=== PATIENT | female | born 1985 | race Caucasian/White ===

== ENCOUNTER 2017-02-12 20:29 | Emergency (ER) | payer OTHER ==
[2017-02-12 21:24] VITALS: BP 106/59
--- NOTE | 2017-02-12 22:36 | UC ---
Lower Extremity/Ankle HPI - HPI Summary HPI Summary: Accidentally kicked foot into [employer] this morning, injuring 5th toe. Has tenderness and bruising isolated to toe only, but pain radiates up into foot and ankle. - History of Current Complaint Chief Complaint: UCTrauma Stated Complaint: TOE INJURY Time Seen by Provider: 02/12/17 22:14 Hx Obtained From: Patient Hx Last Menstrual Period: 02/12/17 ?: No Onset/Duration: Sudden Onset Severity Initially: Severe Severity Currently: Moderate Aggravating Factor(s): Standing, Ambulation Alleviating Factor(s): Rest Able to Bear Weight: Yes - Allergies/Home Medications Allergies/Adverse Reactions: Allergies Allergy/AdvReac Type Severity Reaction Status Date / Time No Known Allergies Allergy Verified 02/12/17 21:14 PMH/Surg Hx/FS Hx/Imm Hx Endocrine History Of: Denies: Diabetes, Thyroid Disease, Hypothyroidism Cardiovascular History Of: Reports: Cardiac Disorders Denies: Hypertension Respiratory History Of: Reports: Asthma Denies: COPD GI/ History Of: Denies: Ulcer Neurological History Of: Reports: Seizures - controlled with medications - Surgical History Surgical History: Yes Surgery Procedure, Year, and Place: ear tubes as a child - Family History Known Family History: Positive: Cardiac Disease - Social History Lives: With Family Alcohol Use: None Substance Use Type: None Smoking Status (MU): Current Every Day Smoker Type: Cigarettes Amount Used/How Often: 4-5 cig/day Household Exposure Type: Cigarettes - Immunization History Most Recent Tetanus Shot: Pt states up to date Review of Systems Constitutional: Negative Skin: Bruising Eyes: Negative ENT: Negative Respiratory: Negative Cardiovascular: Negative Gastrointestinal: Negative Genitourinary: Negative Motor: Negative Neurovascular: Negative Musculoskeletal: Other: - pain in R 5th toe Neurological: Negative Psychological: Negative All Other Systems Reviewed And Are Negative: Yes Physical Exam Triage Information Reviewed: Yes Appearance: Well-Appearing, Well-Nourished Vital Signs: Initial Vital Signs Temp 97.7 F 02/12/17 21:16 Pulse 85 02/12/17 21:16 Resp 16 02/12/17 21:16 BP 106/59 02/12/17 21:16 Pulse Ox 96 02/12/17 21:16 Vital Signs Reviewed: Yes Eye Exam: Normal Eyes: Positive: Conjunctiva Clear ENT Exam: Normal ENT: Positive: Normal ENT inspection, Hearing grossly normal, Pharynx normal, TMs normal Dental Exam: Other - edentulous on top Dental: Positive: Gross Decay/Caries @ - diffuse Neck exam: Normal Respiratory Exam: Normal Respiratory: Positive: Chest non-tender, Lungs clear, Normal breath sounds, No respiratory distress, No accessory muscle use Cardiovascular Exam: Normal Cardiovascular: Positive: RRR, No Murmur Musculoskeletal Exam: Other - tenderness bruising on R 5th toe only, no bony tenderness in foot. Neurological Exam: Normal Psychological Exam: Normal Skin Exam: Other Lower Extremity Course/Dx - Course Course Of Treatment: Discussed fact that x-rays will not waste/materials exchange specialist, offered x-ray and pt declined. She understands that if anything changes about her condition, or if she changes her mind, she can come back for re-evaluation. - Differential Dx/Diagnosis Provider Diagnoses: R 5th toe fracture, clinical diagnosis Discharge - Discharge Plan Condition: Stable Disposition: HOME Patient Education Materials: Toe Fracture (ED) Referrals: Ant BEE,Raoul Trotter [Primary Care Provider] - Additional Instructions: Use the crutches as long as you need to. I expect your pain to start to improve after a few days. If you have new or worsening symptoms, please feel free to return here.
== END 2017-02-12 22:45 | disposition home or self-care (01) ==
LOC: UCEAST 20:29
DX: S92.911A Unspecified fracture of right toe(s), initial encounter for closed fracture (principal); J45.909 Unspecified asthma, uncomplicated; R56.9 Unspecified convulsions; F17.210 Nicotine dependence, cigarettes, uncomplicated; W22.03XA Walked into furniture, initial encounter
CPT/HCPCS: 99212; G0463

== ENCOUNTER 2017-04-05 15:10 | Emergency (ER) | payer OTHER ==
--- NOTE | 2017-04-05 17:21 | RAD ---
Indication: Left ankle injury with swelling. 3 views of left ankle demonstrate no fracture or dislocation. Ankle mortise is intact. No soft tissue swelling is noted. No other bone or joint abnormality is noted. IMPRESSION: No fracture of the left ankle is noted.
[2017-04-05 18:10] VITALS: BP 113/67
--- NOTE | 2017-04-07 11:54 | ED ---
Lower Extremity - HPI Summary HPI Summary: Pt here w/ Lt ankle injury yesterday. Rolled it when stepping on uneven ground. This continued to happen w/ ambulation so mom gave her a spandex brace to wear. She reports icing but still has swelling and pain worse w/ movement and weight bearing. Reports she's sprained this ankle 17 times. Denies numbness, tingling, weakness. - History of Current Complaint Chief Complaint: EDExtremityLower Stated Complaint: LT ANKLE PAIN Time Seen by Provider: 04/05/17 15:40 Hx Obtained From: Patient Hx Last Menstrual Period: 02/12/17 Pain Intensity: 1 Pain Scale Used: 0-10 Numeric - Allergies/Home Medications Allergies/Adverse Reactions: Allergies Allergy/AdvReac Type Severity Reaction Status Date / Time No Known Allergies Allergy Verified 04/05/17 17:44 PMH/Surg Hx/FS Hx/Imm Hx Previously Healthy: Yes Endocrine/Hematology History: Denies: Hx Anticoagulant Therapy, Hx Diabetes, Hx Thyroid Disease Cardiovascular History: Denies: Hx Hypertension Respiratory History: Reports: Hx Asthma Denies: Hx Chronic Obstructive Pulmonary Disease (COPD) GI History: Denies: Hx Ulcer Neurological History: Reports: Hx Seizures - controlled with medications Psychiatric History: Denies: Hx Eating Disorder, Hx of Violent Episodes Against Others - Cancer History Cancer Type, Location and Year: cervical cancer 12/24 - Surgical History Surgery Procedure, Year, and Place: ear tubes as a child Infectious Disease History: No Infectious Disease History: Denies: Hx Clostridium Difficile, Hx Hepatitis, Hx Human Immunodeficiency Virus (HIV), Hx of Known/Suspected MRSA, History Other Infectious Disease, Traveled Outside the [place] in Last 30 Days - Family History Known Family History: Positive: Cardiac Disease - Social History Alcohol Use: None Hx Substance Use: No Substance Use Type: Reports: None Smoking Status (MU): Never Smoked Tobacco Type: Cigarettes Amount Used/How Often: 4-5 cig/day Review of Systems Constitutional: Negative Musculoskeletal: Other - see HPI Skin: Negative Neurological: Negative All Other Systems Reviewed And Are Negative: Yes Physical Exam Triage Information Reviewed: Yes Vital Signs On Initial Exam: Initial Vitals Temp Pulse Resp BP Pulse Ox 98.3 F 71 18 112/64 99 04/05/17 15:32 04/05/17 15:32 04/05/17 15:32 04/05/17 15:32 04/05/17 15:32 Vital Signs Reviewed: Yes Appearance: Positive: Well-Appearing, No Pain Distress - seated in chair, Well- Nourished Skin: Positive: Warm, Dry - no erythema, no ecchymosis ENT: Positive: Hearing grossly normal Musculoskeletal: Positive: Strength/ROM Intact - knee and toes; can move ankle but is painful -no pretty laxity but exam is limited d/t pt's pain and w/ hx, do not want to inflict worsening of injury, Limited @ - Lt ankle w/ limited ROM d/ t pain; mild edema along lateral malleolus which is TTP, 5th MT is NTTP - moving toes but triggers pain; no gross deformity Neurological: Positive: Normal, Sensory/Motor Intact Psychiatric: Positive: Normal Diagnostics - Vital Signs Vital Signs Temp Pulse Resp BP Pulse Ox 04/05/17 18:09 97.8 F 66 16 113/67 04/05/17 16:43 98.3 F 71 18 112/64 99 04/05/17 15:32 98.3 F 71 18 112/64 99 - Laboratory Lab Statement: Any lab studies that have been ordered have been reviewed, and results considered in the medical decision making process. Lower Extremity Course/Dx - Course Course Of Treatment: No fx, no dislocation. Ankle and foot do not appear to be in danger of impairment of circulation or nerve innervation. RICE and non- weight bearing until seen by ortho to asses for ligament/tendon tear d/t repeated injuries and pt reported instability. Reviewed danger s/sx of when to return to ED. - Diagnoses Provider Diagnoses: Left ankle sprain Discharge - Discharge Plan Condition: Stable Disposition: HOME Patient Education Materials: Ankle Sprain (ED), Crutch Instructions (ED) Referrals: Erick Owen MD [Medical Doctor] - Additional Instructions: Rest, ice, elevate Take ibuprofen 600mg every 6 hours alternating with acetaminophen 650mg every 6 hours as needed for swelling and pain Use crutches to remain non-weight bearing Due to repeated ankle sprains here, it is advised that you follow-up with orthopedics. Call tomorrow to schedule an appointment.
== END 2017-04-05 18:13 | disposition home or self-care (01) ==
LOC: ED 15:10
DX: S93.402A Sprain of unspecified ligament of left ankle, initial encounter (principal); M25.572 Pain in left ankle and joints of left foot; X50.9XXA Other and unspecified overexertion or strenuous movements or postures, initial encounter; Y93.9 Activity, unspecified; Y92.9 Unspecified place or not applicable; Y99.9 Unspecified external cause status
CPT/HCPCS: 99282

== ENCOUNTER 2018-03-25 22:14 | Emergency (ER) | payer OTHER ==
[2018-03-25 22:22] VITALS: BP 140/86
--- NOTE | 2018-03-25 22:56 | ED ---
Laceration/Wound HPI - HPI Summary HPI Summary: 33-year-old female presents with laceration to right middle finger today. She states she was working with a fan when her finger got caught in it. States he tore a little bit of her skin. No active bleeding. she has been putting pressure on the area. Her tetanus is up-to-date. No other injury. Has full range motion her finger. No numbness or tingling. Hasn't taking anything for pain. Is requesting sutures. - History of Current Complaint Stated Complaint: RT FINGER INJURY Time Seen by Provider: 03/25/18 22:25 Hx Last Menstrual Period: 02/12/17 Pain Intensity: 10 - Allergy/Home Medications Allergies/Adverse Reactions: Allergies Allergy/AdvReac Type Severity Reaction Status Date / Time No Known Allergies Allergy Verified 04/05/17 17:44 PMH/Surg Hx/FS Hx/Imm Hx Endocrine/Hematology History: Denies: Hx Anticoagulant Therapy, Hx Diabetes, Hx Thyroid Disease Cardiovascular History: Denies: Hx Hypertension Respiratory History: Reports: Hx Asthma Denies: Hx Chronic Obstructive Pulmonary Disease (COPD) GI History: Denies: Hx Ulcer Musculoskeletal History: Denies: Hx Osteoporosis Neurological History: Reports: Hx Seizures - controlled with medications Psychiatric History: Denies: Hx Eating Disorder, Hx of Violent Episodes Against Others - Cancer History Cancer Type, Location and Year: cervical cancer 12/24 - Surgical History Surgery Procedure, Year, and Place: ear tubes as a child Infectious Disease History: No Infectious Disease History: Denies: Hx Clostridium Difficile, Hx Hepatitis, Hx Human Immunodeficiency Virus (HIV), Hx of Known/Suspected MRSA, History Other Infectious Disease, Traveled Outside the [place] in Last 30 Days - Family History Known Family History: Positive: Cardiac Disease - Social History Alcohol Use: None Hx Substance Use: No Substance Use Type: Reports: None Smoking Status (MU): Light Every Day Tobacco Smoker Type: Cigarettes Amount Used/How Often: 4-5 cig/day Review of Systems Negative: Fever Negative: Chest Pain Negative: Shortness Of Breath Positive: Other - right middle finger laceration All Other Systems Reviewed And Are Negative: Yes Physical Exam Triage Information Reviewed: Yes Vital Signs On Initial Exam: Initial Vitals Temp Pulse Resp BP Pulse Ox 98 F 81 20 140/86 97 03/25/18 22:19 03/25/18 22:19 03/25/18 22:19 03/25/18 22:19 03/25/18 22:19 Vital Signs Reviewed: Yes Appearance: Positive: Well-Appearing Skin: Positive: Warm, Dry, Other - 1/2cm superficial laceration to right middle finger on palmar aspect of distal phalanx Head/Face: Positive: Normal Head/Face Inspection Eyes: Positive: Normal, Conjunctiva Clear Respiratory/Lung Sounds: Positive: Clear to Auscultation, Breath Sounds Present Cardiovascular: Positive: Normal, RRR Musculoskeletal: Positive: Strength/ROM Intact - Right middle finger, Other - Good pulses, cap refill less than 2 seconds, sensation grossly intact Neurological: Positive: Normal Psychiatric: Positive: Normal Procedures - Laceration/Wound Repair 1 Location: Other - right middle finger Description: Linear Anesthesia: Local, 1.0% Length, Depth and Shape: 1/2 centimeter superficial Irrigated w/ Saline (ccs): 20 Closure: Single Layer Suture Type: Prolene - 4-0 Number of Sutures: 1 Sterile Dressing Applied?: No Diagnostics - Vital Signs Vital Signs Temp Pulse Resp BP Pulse Ox 03/25/18 22:19 98 F 81 20 140/86 97 - Laboratory Lab Statement: Any lab studies that have been ordered have been reviewed, and results considered in the medical decision making process. Laceration Repair Course/Dx - Course Course Of Treatment: 33-year-old female presents with laceration to right middle finger today. She states she was working with a fan when her finger got caught in it. States he tore a little bit of her skin. No active bleeding. she has been putting pressure on the area. Her tetanus is up-to-date. No other injury. Has full range motion her finger. No numbness or tingling. Hasn 't taking anything for pain. Is requesting sutures. On exam has half centimeter superficial laceration to distal phalanx right middle finger volar and palmar aspect. Neurovascular intact. clean area and place 1 suture as requested by patient. Patient understands agrees plan. - Differential Dx Differental Diagnoses: Abrasion, Avulsion, Laceration - Clinical Impression Provider Diagnoses: Laceration of middle finger Discharge - Sign-Out/Discharge Documenting (check all that apply): Discharge/Admit/Transfer - Discharge Plan Condition: Good Disposition: HOME Patient Education Materials: Care For Your Stitches (ED) Referrals: Kinjal Sharpe MD [Primary Care Provider] - Additional Instructions: Take Tylenol or ibuprofen for pain Keep area clean and dry for 24 hours Return to ED or primary in 10-14 days to have sutures removed Return to ED if develop signs of infection such as fever, spreading redness, or pus. - Billing Disposition and Condition Condition: GOOD Disposition: Home
== END 2018-03-25 23:04 | disposition home or self-care (01) ==
LOC: ED 22:14
DX: S61.212A Laceration without foreign body of right middle finger without damage to nail, initial encounter (principal); W26.9XXA Contact with unspecified sharp object(s), initial encounter; Y92.9 Unspecified place or not applicable
CPT/HCPCS: 12001; 99281

== ENCOUNTER 2018-05-20 09:36 | Emergency (ER) | payer OTHER ==
[2018-05-20 09:55] VITALS: BP 123/65
--- NOTE | 2018-05-20 09:59 | UC ---
Upper Extremity HPI - HPI Summary HPI Summary: This is [facility]aley [facility] documenting for attending Krish Posada MD. Pt is a 33 y/o F c/o RUE pain onset ~3 weeks ago. She reports a small lump located in the R proximal upper arm onset ~8 months ago that has increased in size and developed an associated pain causing visit to urgent care. Pain is rated a 7/10 and described as an ache, per comp. assessment. Assoc. Sx: RUE pain. Denies: decreased ROM, neck pain. Aggravating factors: flexion of the R bicep. - History of Current Complaint Stated Complaint: R ARM COMPLAINT Time Seen by Provider: 05/20/18 09:46 Hx Obtained From: Patient Hx Last Menstrual Period: 02/12/17 Onset/Duration: Gradual Onset - small lump- large, Lasting Weeks - pain - a few weeks, Still Present, Worse Since - a few weeks ago Pain Scale Used: 0-10 Numeric Location Of Pain: Is Diffuse - RUE Aggravating Factor(s): Flexion - Allergies/Home Medications Allergies/Adverse Reactions: Allergies Allergy/AdvReac Type Severity Reaction Status Date / Time No Known Allergies Allergy Verified 05/20/18 09:55 PMH/Surg Hx/FS Hx/Imm Hx Other Endocrine History: NEG: DM Other Cardiovascular History: NEG: CAD, HTN. Other History Of: Negative For: Anticoagulant Therapy - Surgical History Surgical History: Yes Surgery Procedure, Year, and Place: ear tubes as a child - Family History Known Family History: Positive: Cardiac Disease - Social History Occupation: Unemployed Lives: With Family Alcohol Use: None Substance Use Type: None Smoking Status (MU): Light Every Day Tobacco Smoker Type: Cigarettes Amount Used/How Often: 4-5 cig/day Household Exposure Type: Cigarettes - Immunization History Most Recent Tetanus Shot: Pt states up to date Review of Systems Constitutional: Other Skin: Other - POS: RUE swelling, pain Musculoskeletal: Other: - NEG: neck pain, decreased ROM. All Other Systems Reviewed And Are Negative: Yes Physical Exam - Summary Physical Exam Summary: General: Tearful, no pain distress Skin: warm, color reflects adequate perfusion, dry. Proximal R upper arm over the anterior aspect there is a 3 cm soft tissue swelling that is TTP, (-) erythema. Head: normal Eyes: EOMI, SULMA ENT: normal Neck: supple, nontender Respiratory: CTA, breath sounds present Cardiovascular: RRR Abdomen: soft, nontender Bowel: present Musculoskeletal: normal, strength/ROM intact Neurological: sensory/motor intact, A&O x3 Psychological: affect/mood appropriate Triage Information Reviewed: Yes Vital Signs Reviewed: Yes Diagnostics - Radiology Humerus XR Xray Interpretation: No Acute Changes - IMPRESSION: No rediographically apparent acute abnornality. Radiology Interpretation Completed By: Radiologist - Has been reviewed by provider. Upper Extremity Course/Dx - Course Course Of Treatment: THE SWELLING IS SOFT WITHOUT PULSATION. STRENGHT 5/5 BUT, WITH C/O RT BICEP PAIN. CLINICALLY APPEARS TO BE A LIPOMA BUT, I DO NOT EXPECT PAIN WITH A LIPOMA. BICEP STRAIN IS ALSO A POSSIBILITY BUT, DOES NOT EXPLAIN THE SWELLING. F/U PMD AND DERMATLOGY. - Differential Dx/Diagnosis Provider Diagnoses: RIGHT UPPER ARM SOFT TISSUE SWELLING Discharge - Sign-Out/Discharge Documenting (check all that apply): Patient Departure - Discharge Plan Condition: Stable Disposition: HOME Prescriptions: Ibuprofen TAB* [Motrin TAB* 800 MG] 800 mg PO TID PRN #20 tab PRN Reason: Pain Patient Education Materials: Arm Pain (ED), Soft Tissue Mass (ED) Referrals: Urbano Rollins MD [Medical Doctor] - Kinjal Sharpe MD [Primary Care Provider] - Additional Instructions: FOLLOW UP WITH YOUR PRIMARY CARE DOCTOR AND EDITOR CONTINUITY AND SCRIPT. GET RECHECKED FOR ANY WORSENING OF YOUR CONDITION OR QUESTIONS OR CONCERNS. - Billing Disposition and Condition Condition: STABLE Disposition: Home
--- NOTE | 2018-05-20 10:20 | RAD ---
Indication: Right bicep pain and swelling Comparison: None. Technique: Three views of the right humerus were obtained. Report: An external metallic marker is seen overlying the anterolateral mid-level humerus The visualized bones of the right upper arm are well-corticated and properly aligned. There is no acute fracture or dislocation seen. There is no focal bony abnormality. IMPRESSION: No radiographically apparent acute abnormality. If the patient's symptoms persist, follow-up imaging is recommended
== END 2018-05-20 10:46 | disposition home or self-care (01) ==
LOC: UCEAST 09:36
DX: M79.9 Soft tissue disorder, unspecified (principal); Z82.49 Family history of ischemic heart disease and other diseases of the circulatory system; F17.210 Nicotine dependence, cigarettes, uncomplicated
CPT/HCPCS: 99212; G0463

== ENCOUNTER 2018-05-25 12:53 | Emergency (ER) | payer OTHER ==
[2018-05-25 13:05] VITALS: BP 124/69
--- NOTE | 2018-05-25 13:05 | UC ---
Lower Extremity/Ankle HPI - HPI Summary HPI Summary: 33 yo female presents with left ankle pain. She tells me that throughout the course of the day yesterday she inverted her LEFT ankle three different times. She was immediately ambulatory after each time, but since yesterday has had persistent pain. She is currently ambulatory without assistance, but does have a significant limp. She has been taking ibuprofen for pain and RICE therapy with no relief. Also tells me that she has sprained this ankle many times in the past. Denies numbness or tingling. - History of Current Complaint Stated Complaint: L ANKLE INJURY Time Seen by Provider: 05/25/18 13:04 Hx Obtained From: Patient Hx Last Menstrual Period: 02/12/17 Onset/Duration: Sudden Onset Severity Initially: Severe Severity Currently: Severe Pain Intensity: 10 Pain Scale Used: 0-10 Numeric Aggravating Factor(s): Standing, Ambulation Alleviating Factor(s): Rest Able to Bear Weight: Yes - Allergies/Home Medications Allergies/Adverse Reactions: Allergies Allergy/AdvReac Type Severity Reaction Status Date / Time No Known Allergies Allergy Verified 05/25/18 12:59 PMH/Surg Hx/FS Hx/Imm Hx Previously Healthy: Yes Other History Of: Negative For: Anticoagulant Therapy - Surgical History Surgical History: Yes Surgery Procedure, Year, and Place: ear tubes as a child - Family History Known Family History: Positive: Cardiac Disease - Social History Occupation: Employed Full-time Lives: With Family Alcohol Use: None Substance Use Type: None Smoking Status (MU): Light Every Day Tobacco Smoker Type: Cigarettes Amount Used/How Often: 4-5 cig/day Household Exposure Type: Cigarettes - Immunization History Most Recent Tetanus Shot: Pt states up to date Review of Systems Constitutional: Negative Skin: Negative Respiratory: Negative Cardiovascular: Negative Neurovascular: Negative Musculoskeletal: Other: - Left ankle pain Neurological: Negative Psychological: Negative All Other Systems Reviewed And Are Negative: Yes Physical Exam - Summary Physical Exam Summary: GENERAL: NAD. WDWN. No pain distress. SKIN: No rashes, sores, lesions, or open wounds. NECK: Supple. Nontender. No lymphadenopathy. CHEST: No accessory muscle use. Breathing comfortably and in no distress. CV: Pulses intact PT and DP. Brisk cap refill. MSK: LEFT ANKLE: Moderate TTP about lateral malleolus and over ATFL. Mild pain at high ankle. FROM with moderate pain. Strength 5/5. No edema or obvious bony deformities. Negative talar tilt. No increased laxity. NEURO: Alert. Sensations intact and symmetric B/L LEs PSYCH: Age appropriate behavior. Triage Information Reviewed: Yes Vital Signs: Vital Signs: Temp Pulse Resp BP Pulse Ox 98.3 F 85 16 124/69 99 05/25/18 13:00 05/25/18 13:00 05/25/18 13:00 05/25/18 13:00 05/25/18 13:00 Vital Signs Reviewed: Yes Lower Extremity Course/Dx - Course Course Of Treatment: XR: IMPRESSION: NO EVIDENCE FOR FRACTURE. Suspect ankle sprain. Pt was provided crutches, hannah wrap, and gel splint. Advised to RICE and continue with ibuprofen. F/u with Ortho. - Differential Dx/Diagnosis Provider Diagnoses: Left ankle sprain Discharge - Sign-Out/Discharge Documenting (check all that apply): Patient Departure - Discharge Plan Condition: Stable Disposition: HOME Patient Education Materials: Ankle Sprain (DC) Referrals: Kinjal Sharpe MD [Primary Care Provider] - James Del Valle MD [Medical Doctor] - As Soon As Possible Additional Instructions: If you develop a fever, shortness of breath, chest pain, new or worsening symptoms - please call your PCP or go to the ED. 1) Rest, Ice, and elevate your ankle as much as possible 2) Please call Orthopedics at the number below to schedule a follow up appointment - Billing Disposition and Condition Condition: STABLE Disposition: Home
--- NOTE | 2018-05-25 13:46 | RAD ---
INDICATION: Left ankle injury. TECHNIQUE: 3 views of the left ankle were obtained. FINDINGS: The bones are in normal alignment. No fracture is seen. Joint spaces appear maintained. IMPRESSION: NO EVIDENCE FOR FRACTURE.
== END 2018-05-25 14:44 | disposition home or self-care (01) ==
LOC: UCEAST 12:53
DX: S93.402A Sprain of unspecified ligament of left ankle, initial encounter (principal); X50.1XXA Overexertion from prolonged static or awkward postures, initial encounter; Y93.9 Activity, unspecified; Y92.9 Unspecified place or not applicable; F17.210 Nicotine dependence, cigarettes, uncomplicated
CPT/HCPCS: 99212; G0463

== ENCOUNTER 2018-05-26 15:03 | Emergency (ER) | payer OTHER ==
[2018-05-26] MEDS ORDERED: Ketorolac INJ* 60 MG/2 ML VIAL IM ONE (15:26)
--- NOTE | 2018-05-26 15:38 | ED ---
Lower Extremity - HPI Summary HPI Summary: This is scribe Frederic Lewis documenting for attending Balta Kang MD. A 33 y/o female EHSAN presents to ED c/o left foot pain reaching 5/10 in severity. As per triage, "rolled left ankle 3 times yesterday and went to [facility] to have xrays, dx with crutches and soft brace. Now pain so bad she's nauseated". According to the patient, she got up yesterday and accidentally rolled her left foot. She noted that an XR of her foot was done at [facility] yesterday where the staff weren't 100% sure of a fracture because it was so swollen and they could not tell if it was broken. As per MD, X-ray of left foot completed on 2017 at [facility] revealed no evidence of fracture dislocation. I, Dr. Kang personally performed the services described in this documentation as scribed in my presence and it is both accurate and complete. - History of Current Complaint Chief Complaint: EDExtremityLower Stated Complaint: SWELLING Time Seen by Provider: 05/26/18 15:08 Hx Obtained From: Patient Hx Last Menstrual Period: 02/12/17 Mechanism Of Injury: Twisted - Rolled Onset of Pain: Immediate Onset/Duration: Hours Severity Initially: Moderate Severity Currently: Moderate Pain Intensity: 5 Pain Scale Used: 0-10 Numeric Timing: Constant Location: Is Diffuse - Left foot/ankle Associated Signs And Symptoms: Positive: Negative Aggravating Factor(s): Nothing Alleviating Factor(s): Nothing - Allergies/Home Medications Allergies/Adverse Reactions: Allergies Allergy/AdvReac Type Severity Reaction Status Date / Time No Known Allergies Allergy Verified 05/26/18 15:12 PMH/Surg Hx/FS Hx/Imm Hx Endocrine/Hematology History: Denies: Hx Anticoagulant Therapy, Hx Diabetes, Hx Thyroid Disease Cardiovascular History: Denies: Hx Hypertension Respiratory History: Reports: Hx Asthma Denies: Hx Chronic Obstructive Pulmonary Disease (COPD) GI History: Denies: Hx Ulcer Musculoskeletal History: Denies: Hx Osteoporosis Neurological History: Reports: Hx Seizures - controlled with medications Psychiatric History: Denies: Hx Eating Disorder, Hx of Violent Episodes Against Others - Cancer History Cancer Type, Location and Year: cervical cancer 12/24 - Surgical History Surgery Procedure, Year, and Place: ear tubes as a child Infectious Disease History: No Infectious Disease History: Denies: Hx Clostridium Difficile, Hx Hepatitis, Hx Human Immunodeficiency Virus (HIV), Hx of Known/Suspected MRSA, History Other Infectious Disease, Traveled Outside the [place] in Last 30 Days - Family History Known Family History: Positive: Cardiac Disease - Social History Alcohol Use: None Hx Substance Use: No Substance Use Type: Reports: None Smoking Status (MU): Light Every Day Tobacco Smoker Type: Cigarettes Amount Used/How Often: 4-5 cig/day Review of Systems Negative: Fever Positive: Other - POSITIVE: Left foot/ankle pain. All Other Systems Reviewed And Are Negative: Yes Physical Exam - Summary Physical Exam Summary: VITAL SIGNS: Reviewed. GENERAL: Patient is a well-developed and nourished female who is lying comfortable in the stretcher. Patient is not in any acute respiratory distress. HEAD AND FACE: No signs of trauma. No ecchymosis, hematomas or skull depressions. No sinus tenderness. EYES: PERRLA, EOMI x 2, No injected conjunctiva, no nystagmus. EARS: Hearing grossly intact. Ear canals and tympanic membranes are within normal limits. MOUTH: Oropharynx within normal limits. NECK: Supple, trachea is midline, no adenopathy, no JVD, no carotid bruit, no c- spine tenderness, neck with full ROM. CHEST: Symmetric, no tenderness at palpation LUNGS: Clear to auscultation bilaterally. No wheezing or crackles. CVS: Regular rate and rhythm, S1 and S2 present, no murmurs or gallops appreciated. ABDOMEN: Soft, non-tender. No signs of distention. No rebound no guarding, and no masses palpated. Bowel sounds are normal. EXTREMITIES: Left foot ankle has good pulse, good capillary refill, no ecchymosis, no deformity, no swelling, ROM secondary to pain. NEURO: Alert and oriented x 3. No acute neurological deficits. Speech is normal and follows commands. SKIN: Dry and warm X-ray of Left Foot completed on 05/25/2018 at [facility] revealed no evidence of fracture dislocation. Triage Information Reviewed: Yes Vital Signs On Initial Exam: Initial Vitals Temp Pulse Resp BP Pulse Ox 98.7 F 104 14 116/71 98 05/26/18 15:08 05/26/18 15:08 05/26/18 15:08 05/26/18 15:08 05/26/18 15:08 Vital Signs Reviewed: Yes Diagnostics - Vital Signs Vital Signs Temp Pulse Resp BP Pulse Ox 05/26/18 15:08 98.7 F 104 14 116/71 98 - Laboratory Lab Statement: Any lab studies that have been ordered have been reviewed, and results considered in the medical decision making process. - Radiology FOOT XR Radiology Interpretation Completed By: Radiologist - NO EVIDENCE FOR FRACTURE. IF THE PATIENT'S SYMPTOMS PERSIST RECOMMEND FOLLOW-UP IMAGING. ED PHYSICIAN REVIEWED THIS RADIOLOGY REPORT. Lower Extremity Course/Dx - Course Assessment/Plan: This patient is a 33-year-old female who presents to the emergency room with a chief complaint of left ankle pain. Patient was seen yesterday in urgent care where an x-ray was performed of the left ankle and knee and shows no evidence for fracture. X-ray of the left foot impression: Negative for acute fracture dislocation. In the ED course the patient was given 1 dose of Toradol IM. I discussed all the findings and test results with the patient. Patient was instructed to return to the emergency room immediately if any of the symptoms return or worsens. Plan of care was discussed with the patient who understands and agrees. All questions were answered to patient satisfaction. There were no further complaints or concerns. Lung exam before discharge: CTA B/L. Good air exchange. No wheezing or crackles heard. CVS: S1 and S2 present. No murmurs appreciated. Patient is alert and oriented x 3. Patient is hemodynamically stable. Patient will be discharged home with follow up PCP in the next 2-3 days - Diagnoses Differential Diagnosis/HQI/PQRI: Positive: Bursitis, Fracture (Closed), Sprain, Strain Provider Diagnoses: Left ankle strain Discharge - Sign-Out/Discharge Documenting (check all that apply): Patient Departure - DISCHARGE - Discharge Plan Condition: Stable Disposition: HOME Patient Education Materials: Ankle Strain (ED) Referrals: Kinjal Sharpe MD [Primary Care Provider] - 3 Days Additional Instructions: FOLLOW UP WITH PRIMARY CARE IN 3 DAYS. RETURN TO ED FOR ANY WORSENING OR NEW SYMPTOMS. Attestations Scribe Attestation: This is scrtito Lewis documenting for attending Balta Kang MD. User Type: Provider with Scribe Provider Attestation: The documentation recorded by the scribe accurately reflects the service I personally performed and the decisions made by me.
--- NOTE | 2018-05-26 16:08 | RAD ---
INDICATION: Left foot injury. TECHNIQUE: 3 views of the left foot were obtained. FINDINGS: There is lateral soft tissue swelling. The bones are in normal alignment. No fracture is seen. Joint spaces appear maintained. IMPRESSION: NO EVIDENCE FOR FRACTURE. IF THE PATIENT'S SYMPTOMS PERSIST RECOMMEND FOLLOW-UP IMAGING.
[2018-05-26 16:41] VITALS: BP 123/69
== END 2018-05-26 16:40 | disposition home or self-care (01) ==
LOC: ED 15:03
DX: S96.912A Strain of unspecified muscle and tendon at ankle and foot level, left foot, initial encounter (principal); X50.0XXA Overexertion from strenuous movement or load, initial encounter; Y92.9 Unspecified place or not applicable; F17.210 Nicotine dependence, cigarettes, uncomplicated; R56.9 Unspecified convulsions; Z79.899 Other long term (current) drug therapy
CPT/HCPCS: 96372; 99282; J1885

== ENCOUNTER 2018-07-29 05:57 | Day surgery (SDC) | payer OTHER ==
[~2018-07-29 05:57] MED LIST: Buffered Lidocaine 0.9% SYRIN* 5 ML/SYR SYRINGE INTRADERM ONE
[2018-07-29] MEDS ORDERED: Buffered Lidocaine 0.9% SYRIN* 5 ML/SYR SYRINGE INTRADERM ONE (06:00)
[2018-07-29] MEDS ORDERED: Buffered Lidocaine 0.9% SYRIN* 5 ML/SYR SYRINGE ONE (06:15)
[2018-07-29] MEDS ORDERED: ceFAZolin 2 GM PREMIX in ORs 2 GM/50 ML BAG IVPB ONE (06:15)
[2018-07-29] MEDS ORDERED: Bupivacaine 0.5% SDV PF* 30ML VIAL ONE (06:42)
[2018-07-29] MEDS ORDERED: Lidocain 1% EPI 1:100,000 * 30 ML MDV ONE (06:42)
[2018-07-29] MEDS ORDERED: Albuterol 2.5 MG/3 ML NEB.SOL* (0.083%) INH ONE ×2 (07:01→07:07)
[2018-07-29] MEDS ORDERED: Propofol* 10 MG/ML 20 ML BTL IV PUSH ONE ×2 (07:19→07:49)
[2018-07-29] MEDS ORDERED: Lidocaine 2% PF * 5 ML VIAL ONE (07:19)
[2018-07-29] MEDS ORDERED: Midazolam* 1 MG/ML 2 ML VIAL (2 MG) ONE ×2 (07:26→07:47)
[2018-07-29] MEDS ORDERED: Acetaminophen IV 1GM/100ML * 1,000 MG/100 ML VIAL IVPB ONE (07:59)
[2018-07-29] MEDS ORDERED: Ondansetron INJ* 2 MG/ML VIAL IV PRN (07:59)
[2018-07-29] MEDS ORDERED: fentaNYL* 50 MCG/ML 2 ML VIAL (100 MCG VIAL) IV PRN (07:59)
[2018-07-29] MEDS ORDERED: Naloxone* 0.4 MG/ML 1 ML VIAL IV PRN (07:59)
[2018-07-29] MEDS ORDERED: Ketorolac INJ* 30 MG/ML 1 ML VIAL ONE (08:01)
[2018-07-29] MEDS ORDERED: Acetaminophen IV 1GM/100ML * 100 ML ONE (08:14)
--- NOTE | 2018-07-29 08:18 | BRIEFOPN ---
Brief Operative Note - Surgery Procedures: Procedures OPERATIVE REPORT PRE-OP: Lipoma right arm POST-OP:Same PROCEDURE:Excision of 6 cm right arm SURGEON: MD Vianca ANESTHESIA:Local with MAC Dr. Goins ASST: none IVF:min EBL:min SPECIMEN:Lipoma right arm DRAIN: none WOUND CLASS: One COMPLICATIONS: none TO PACU
[2018-07-29 08:54] VITALS: BP 115/66
--- NOTE | 2018-07-30 04:47 | OP ---
DATE OF OPERATION: 07/29/18 - [facility] DATE OF : 81 SURGEON: Erlin Coley MD BILINGUAL BRANCH MANAGER: None. ANESTHESIOLOGIST: Dr. Goins. ANESTHESIA: Local with monitored anesthesia care. PRE-OP DIAGNOSIS: Lipoma, right upper arm. POST-OP DIAGNOSIS: A 5 cm lipoma, right upper arm. OPERATIVE PROCEDURE: Excision of subcutaneous lipoma, 5 cm, right upper arm. ESTIMATED BLOOD LOSS: Minimal. IV FLUIDS: Minimal. SPECIMENS: Right arm lipoma. COMPLICATIONS: None. DRAINS: None. DESCRIPTION OF PROCEDURE: Written informed consent was obtained. The right arm was marked with indelible ink and preoperative antibiotics were administered. The patient was taken to the operating room and placed in the supine position. Intravenous sedation was administered and the right arm was prepped and draped in the usual sterile fashion. A time-out verification was completed. 1% lidocaine with epinephrine was infiltrated over the palpable soft fleshy mass in the right medial upper arm and a vertical incision of approximately 5 to 6 cm was made. A 5 cm lipoma easily was excised from the surrounding subcutaneous tissue and sent for specimen. Hemostasis was assured. The lipoma was assured to be completely removed. The wound was then closed with interrupted 3-0 Vicryl subcutaneous suture. The skin was approximated with a subcuticular 4-0 Vicryl suture. Steri-Strips and sterile dressings were applied. The patient tolerated the procedure well, was taken to the recovery room in stable condition. [id number]/[facility] #: [id number] MTDD
== END 2018-07-29 09:15 | disposition home or self-care (01) ==
LOC: OR 05:57
PROVIDERS: ATTEND Surgery
DX: D17.21 Benign lipomatous neoplasm of skin and subcutaneous tissue of right arm (principal); J45.909 Unspecified asthma, uncomplicated; R56.9 Unspecified convulsions; F17.210 Nicotine dependence, cigarettes, uncomplicated
CPT/HCPCS: 81025; 88304; J0690; J1885; J2250; J2704

== ENCOUNTER 2018-10-31 08:13 | Day surgery (SDC) | payer OTHER ==
[~2018-10-31 08:13] MED LIST changes: -Buffered Lidocaine 0.9% SYRIN* 5 ML/SYR SYRINGE INTRADERM ONE; +Buffered Lidocaine 1% SYRIN* 1 ML/SYRINGE INTRADERM ONE; +Dexamethasone IV* 4 MG/ML 1 ML (4 MG) IV SLOW PU ONE; +Famotidine IV* 10 MG/ML 2 ML (20 mg) IV ONE; +Lactated Ringers 1000 ML Bag* 1,000 ML IV SCH
[2018-10-31] MEDS ORDERED: Dexamethasone IV* 4 MG/ML 1 ML (4 MG) ONE (10:39)
[2018-10-31] MEDS ORDERED: ceFOXitin 2 GM IVPREMIX* 2 GM/50 ML BAG ONE (10:39)
[2018-10-31] MEDS ORDERED: Buffered Lidocaine 1% SYRIN* 1 ML/SYRINGE INTRADERM ONE (10:39)
[2018-10-31] MEDS ORDERED: Famotidine IV* 10 MG/ML 2 ML (20 mg) ONE (10:39)
[2018-10-31] MEDS ORDERED: fentaNYL* 50 MCG/ML 2 ML VIAL (100 MCG VIAL) ONE (10:48)
[2018-10-31] MEDS ORDERED: Midazolam* 1 MG/ML 2 ML VIAL (2 MG) ONE (10:48)
[2018-10-31] MEDS ORDERED: Ketorolac INJ* 30 MG/ML 1 ML VIAL ONE (10:49)
[2018-10-31] MEDS ORDERED: Ondansetron INJ* 2 MG/ML VIAL ONE (10:49)
[2018-10-31] MEDS ORDERED: Propofol* 10 MG/ML 20 ML BTL ONE (10:49)
[2018-10-31] MEDS ORDERED: Lidocaine 2% PF * 5 ML VIAL ONE ×2 (10:50→11:38)
[2018-10-31] MEDS ORDERED: Neostigmine Methylsulfate* 1 MG/ML 10 ML VIAL (1 mg/ml) ONE (11:42)
[2018-10-31] MEDS ORDERED: Glycopyrrolate IV* 0.2 MG/ML 1 ML VIAL ONE (11:42)
[2018-10-31] MEDS ORDERED: Naloxone* 0.4 MG/ML 1 ML VIAL IV PRN (12:00)
[2018-10-31] MEDS ORDERED: DiMENhydriNATE IV* 50 MG/ML VIAL IV PUSH PRN (12:00)
[2018-10-31] MEDS ORDERED: fentaNYL* 50 MCG/ML 2 ML VIAL (100 MCG VIAL) IV PRN (12:00)
[2018-10-31] MEDS ORDERED: oxyCODONE/Acetamin 5/325 MG* TAB ONE (12:42)
[2018-10-31 13:59] VITALS: BP 116/78
--- NOTE | 2018-10-31 22:59 | OP ---
DATE OF OPERATION: 10/31/18 [facility] DATE OF : 81 SURGEON: Ignacio Lopez MD INTERNATIONAL MARKETING SPECIALIST: None. PRE-OP DIAGNOSIS: Menorrhagia and desires sterilization. POST-OP DIAGNOSIS: Menorrhagia and desires sterilization. OPERATIVE PROCEDURE: Dilation and endometrial ablation, laparoscopic bilateral tubal ligation. ESTIMATED BLOOD LOSS: Minimal. SPECIMEN: Includes none. FINDINGS: Include a normal cavity on hysteroscopy. On laparoscopy, the anterior bladder flap appeared normal. The uterus, tubes, and ovaries all appeared normal. DESCRIPTION OF PROCEDURE: The patient was identified, procedure identified as a D and C hysteroscopy, endometrial ablation and laparoscopic bilateral tubal ligation. The patient was taken to the operating room, prepped and draped in the usual fashion in the dorsal lithotomy position under general anesthesia. Two single- tooth tenaculums were placed on the anterior lip of the cervix. The cervix was sounded to 7 cm. The endocervix was sounded to 1.5 cm. The cervix was easily dilated up to a #8 Hegar dilator so that cavity length was 5.5. The hysteroscope was inserted. A good uterine cavity, both tubal ostia were visualized, and there was a normal cavity with no polyps or fibroids and no abnormal areas. The NovaSure device was opened. The array was checked. A NovaSure device was placed within the uterine cavity with a cavity length of 5.5. The opening width was 4.0 and end with manipulation was up to 4.7. Power setting of 142. The NovaSure perforation test was performed and device passed. The device was enabled and NovaSure ablation took place for 51 seconds. At the end of the procedure, the hysteroscope was reinserted and a good ablation was noted. No polyps, no perforations or concerns were noted on hysteroscopy. All instruments removed from vagina. A sponge stick was placed for manipulation. A small infraumbilical incision was made and a Veress needle was inserted through this. The abdomen was insufflated to 50 mmHg. The Veress needle was removed and the trocar was inserted under direct visualization using a Visiport. All the above findings were noted. A small incision was made above the pubic symphysis 2 cm above it and a second trocar was inserted under direct visualization. The bipolar Kleppinger cautery was placed through the lower site. The right fallopian tube was grasped in its midportion and fulgurated x3. The same procedure was carried out on the left after following it out to its fimbriated ends. Care was taken to cauterize the fimbria as well. At the end of the procedure, all the instruments removed from the abdomen. The abdomen was deflated of CO2. The skin was closed using skin glue , and the sponge and instrument sticks removed from vagina. [id number]/[facility] #: [id number]
== END 2018-10-31 14:02 | disposition home or self-care (01) ==
LOC: OR 08:13
PROVIDERS: ATTEND Obstetrics & Gynecology
DX: Z30.2 Encounter for sterilization (principal); N92.0 Excessive and frequent menstruation with regular cycle; F17.210 Nicotine dependence, cigarettes, uncomplicated
CPT/HCPCS: 81025; A9270-GY; J0694; J1100; J1885; J2250; J2405; J2704; J2710; J3010

== ENCOUNTER 2018-12-02 10:13 | Emergency (ER) | payer OTHER ==
--- OUTSIDE RECORDS SUMMARY | 2018-12-02 10:19 | XMS REPORT | Continuity of Care Document ---
:1985 External Reference #:[id number] Author Name Ignacio Lopez M.D. Address [address] [place] [address] Care Team Providers Name Role Phone Soo Sharpe MD Primary Care Physician Unavailable Payers Date Identification Numbers Payment Provider Subscriber Policy Number: [id number] [facility] Fer Anderson PayID: [id number] [address] [place] [address] Policy Number: [id number] Medicaid [place] Fer Anderson PayID: [id number] [address] [place] [address] Expires: 2013 Policy Number: [id number] Medicaid [place] Fer Anderson PayID: [id number] [address] [place] [address] Advance Directives Description No Information Available Problems Date Description Provider Status Onset: 11/12/2012 Localization-related epilepsy Charmaine Anthony NP Active Onset: 11/13/2012 Dysplasia of cervix Charmaine Anthony NP Active Note: high-grade Family History Date Family Member(s) Observation Comments Father COPD Father Hypercholesterolemia Father Heart Disease Mother Diabetes Children 3 First Son A&W Second Son A&W First Daughter Autism First Daughter Add (Attention Deficit Disorder) Siblings 5 First Brother A&W First Sister A&W Second Sister A&W Third Sister A&W Fourth Sister A&W Paternal Grandfather due to Lung Cancer () Paternal Grandfather due to Throat Cancer () Paternal Grandmother due to Lung Cancer () Paternal Grandmother due to Pancreatic Cancer () Maternal Grandfather Unknown Maternal Grandmother due to Respiratory Failure () Maternal Aunts Cervical Cancer Social History Type Date Description Comments Sex Unknown Education Highest level completed, 12th grade Marital Status Legal Status: Legally Lives With Sons Lives With Daughter Sleep Typically sleeps 7 hours a night Pets None Occupation Homemaker Environmental Hazards Not exposed to any environmental hazards Environmental Hazards Low Lead Risk Cigarette Use Current Cigarette Smoker ETOH Use Denies alcohol use Recreational Drug Use Denies Drug Use Tobacco Use Start: Unknown Patient is a current smoker, smokes every day Smoking Status Reviewed: 11/27/18 Patient is a current smoker, smokes every day Exercise Type/Frequency Exercises sporadically Seat Belt/Car Seat Always uses seat belt Currently Active Patient is currently sexually active Contraceptive Methods Current methods include tubal ligation STD's 2011 HPV, High Risk AWA: 04/27/2013 Estimated Date of Delivery Based on LMP Allergies, Adverse Reactions, Alerts Description No Known Drug Allergies Medications Medication Date Status Form Strength Qnty SIG Indications Ordering Provider Amoxicillin/Clavu 11/27 Active Tablets 500-125mg 20tab 1 by mouth Ignacio Campbell lanate s twice a Gelber, day M.D. Ibuprofen 10/22 Active Tablets 600mg 90tab take one Z01.818 Ignacio Campbell s tab by Gelber, mouth M.D. every 6 hours as needed pain Alyacen 135 08/22 Active Tablets 1-35mg-mc 84tab 1 by mouth N92.6 Ignacio Campbell /2017 g s every day Torin Lopez Tegretol 11/12 Active Tablets ER 200mg 2 po bid 12HR Ventolin HFA Active Aerosol 108(90Bas 1unit 2 puffs q Unknown / e) s 4 hours mcg/Act prn Tri-Sprintec 07/01 Hx Tablets 0.18/0.21 28tab take one N92.6 Ignacio Campbell 5/0.25 s tablet by Jessica, - mg-35 mcg mouth one M.D. 08/22 time daily Ethynodiol 06/10 Hx Tablets 1-35mg-mc 84tab 1 po qd as Z30.8 Ignacio Campbell Diacetate/Ethinyl /2017 g s directed Gelber, Estradiol - M.D. 07/01 Metrogel-Vaginal 05/11 Hx Gel 0.75% 1TX 1 Ignacio Campbell applicator Gelvalentino, - every M.D. 06/10 night at bedtime x 5 days Levonorgestrel/Et 05/08 Hx Tablets 0.1-20mg- 84tab 1 by mouth Z30.8 Ignacio Campbell hinyl Estradiol mcg s every day Gelvalentino, - M.D. 06/10 Medroxyprogestero 06/29 Hx Suspension 150mg/ml 1unit give one Shiela ne Acetate s dose Im Hira, - every 3 Folic Acid 11/10 Hx Tablets 800mcg 30tab 1 PO daily s Ousmane - CNM 05/08 Plus Dha 11/10 Hx Tablets 7-0.4-100 100ta ok to mg bs substitute Ousmane, - pnv + dha [facility] 05/08 covered by pt insurance 1 daily by mouth Lancets 03/27 Hx Misc 100un for use its with blood Ousmane, - glucose [facility] 06/25 monitor. use as directed qid Blood Glucose 03/13 Hx Kit W/Device 1Moni use in am Phaelon Monitoring System /2012 tor before MD Lorene - eating, 06/25 then 2 hrs /2012 after every meal Blood Glucose 03/13 Hx Strips 1Box to use as Phaelon Test Strips /2012 directed MD Lorene - qid 06/25 Alcohol Pads 03/13 Hx Pads 70% 1Box Use to Phaelon /2012 clean skin MD Lorene - prior to 06/25 fingerstic k Flintstones 11/12 Hx Chewtabs 60mg 90uni 1 po qd Idalia Matthew Burns M.D. 05/10 Tammy 28 Day 07/21 Hx Tablets 0.03mg;3 28tab 1 PO qd Lexx Stallings /Ish mg Matthew Donato M.D. 10/24 Dilantin Hx Capsules 100mg Unknown /0000 - 11/10 Medications Administered in Office Medication Date Status Form Strength Qnty SIG Indications Ordering Provider PT SCRN Tbco Administered Injection Ignacio Campbell Id as Non User 018 Torin Lopez PT SCRN Tbco Administered Injection Ignacio Campbell Id as Non User 018 Torin Lopez PT SCRN Tbco Administered Injection Ignacio Campbell Id as Non User 018 Torin Lopez Immunizations CPT Code Status Date Vaccine Reaction Lot # [id number] Given 10/22/2018 Influenza Vaccine Quadrivalent [id number] Preser/Antibiotic Free Im Use 28484 Given 11/10/2013 Influenza Virus Vaccine Split Virus Pt lavinia well. 1346 5P Use For Individual 3Yr Older 14074 Given 03/13/2013 Diptheria,Tetanus Toxoids And Pt lavinia well. [id number] Acelluar Pertussis Vaccine+Hib Vital Signs Date Vital Result Comment 11/27/2018 9:49am BP Systolic 116 mmHg BP Diastolic 72 mmHg Body Temperature 98.2 F Oral Height 62 inches 5'2" Weight 154.00 lb BMI (Body Mass Index) 28.2 kg/m2 Last Menstrual Period 5957266 3 Parity 3 11/07/2018 8:50am BP Systolic 102 mmHg BP Diastolic 70 mmHg Body Temperature 98.1 F Height 62 inches 5'2" Weight 160.00 lb BMI (Body Mass Index) 29.3 kg/m2 Last Menstrual Period 5844722 3 Parity 3 10/22/2018 9:21am BP Systolic 118 mmHg BP Diastolic 68 mmHg Body Temperature 98.6 F Heart Rate 76 /min Respiratory Rate 12 /min Height 62 inches 5'2" Weight 160.00 lb BMI (Body Mass Index) 29.3 kg/m2 Last Menstrual Period 6071849 3 Parity 3 08/22/2018 8:04am BP Systolic 122 mmHg BP Diastolic 66 mmHg Height 62 inches 5'2" Weight 160.00 lb BMI (Body Mass Index) 29.3 kg/m2 Last Menstrual Period 0334549 3 Parity 3 06/10/2018 9:58am BP Systolic 118 mmHg BP Diastolic 64 mmHg Height 62 inches 5'2" Weight 159.00 lb BMI (Body Mass Index) 29.1 kg/m2 Last Menstrual Period 6358039 3 Parity 3 05/08/2018 9:31am BP Systolic 122 mmHg BP Diastolic 72 mmHg Height 62 inches 5'2" Weight 159.00 lb BMI (Body Mass Index) 29.1 kg/m2 Last Menstrual Period 4128979 3 Parity 3 06/29/2014 10:02am BP Systolic 110 mmHg BP Diastolic 72 mmHg Height 62 inches 5'2" Weight 158.00 lb BMI (Body Mass Index) 28.9 kg/m2 Last Menstrual Period 6927190 3 Parity 3 02/13/2014 1:05pm BP Systolic 126 mmHg BP Diastolic 78 mmHg Height 62 inches 5'2" Weight 165.00 lb BMI (Body Mass Index) 30.2 kg/m2 Last Menstrual Period 9149145 3 Parity 2 11/10/2013 1:53pm BP Systolic 108 mmHg BP Diastolic 60 mmHg Height 62 inches 5'2" Weight 153.00 lb BMI (Body Mass Index) 28.0 kg/m2 Last Menstrual Period 5210337 3 Parity 2 06/25/2013 10:47am BP Systolic 116 mmHg BP Diastolic 72 mmHg Height 62 inches 5'2" Weight 149.00 lb BMI (Body Mass Index) 27.2 kg/m2 2 Parity 2 06/10/2013 1:47pm BP Systolic 112 mmHg BP Diastolic 70 mmHg Height 62 inches 5'2" Weight 147.00 lb BMI (Body Mass Index) 26.9 kg/m2 2 Parity 2 05/20/2013 2:00pm BP Systolic 122 mmHg BP Diastolic 68 mmHg Body Temperature 98.5 F Height 62 inches 5'2" Weight 152.00 lb BMI (Body Mass Index) 27.8 kg/m2 Last Menstrual Period 3240236 2 Parity 2 11/12/2012 8:54am BP Systolic 104 mmHg BP Diastolic 60 mmHg Height 62 inches 5'2" Weight 143.00 lb BMI (Body Mass Index) 26.2 kg/m2 Last Menstrual Period 0590877 2 Parity 1 07/21/2005 3:00pm BP Systolic 110 mmHg BP Diastolic 78 mmHg Height 62 inches 5'2" Weight 144.00 lb BMI (Body Mass Index) 26.3 kg/m2 Last Menstrual Period 2331904 1 Parity 1 Results Test Date Facility Test Result H/L Range Note CBC With No 10/22/2018 [facility] White Blood 11.6 10^3/uL High 3.5-10.8 1 [place] [address] Count [phone] Red Blood Count 4.15 10^6/uL N 4.00-5.40 Hemoglobin 12.9 g/dL N 12.0-16.0 Hematocrit 40 % N 35-47 Mean Corpuscular Volume 96 fL N 80-97 Mean Corpuscular Hemoglobin 31 pg N 27-31 Mean Corpuscular HGB Conc 33 g/dL N 31-36 Red Cell Distribution Width 14 % N 10.5-15 Platelet Count 179 10^3/uL N 150-450 Mean Platelet Volume 11.5 fL High 7.4-10.4 Type And Screen 10/22/2018 [facility] [place] [address] [phone] Antibody Screen NEGATIVE Laboratory 10/22/2018 [facility] TSH (Thyroid 1.34 N 0.34- 5.60 2 test [place] [address] Stimulating mcIU/mL [phone] Horm) Laboratory 10/22/2018 [facility] Surgical SEE RESULT 3, 4 test [place] [address] Pathology BELOW [phone] Laboratory 05/08/2018 [facility] Cytology SEE RESULT 5, 6 test [place] [address] BELOW [phone] GC/Chlamydia 05/08/2018 [facility] Chlamydia [place] [address] trachomatis Rna [phone] Neisseria gonorrhoeae (GC) Rna Negative Negative Laboratory test 06/29/2014 [facility] Cytology RUN DATE: 7 finding [place] [address] 07/01/ <SEE [phone] NOTE> Laboratory test 05/01/2014 [facility] B Strep (SEE NOTE) 8 finding [place] [address] Culture Screen [phone] Urine Culture And 04/27/2014 [facility] Urine Culture (SEE NOTE ) 9 Sensitivities [place] [address] [phone] Urinalysis Profile 04/27/2014 [facility] Urine Color Yellow N [place] [address] [phone] Urine Appearance Cloudy N Urine Specific [place] 1.018 N 1.010-1.030 Urine pH 6.0 N 5-9 Urine Urobilinogen Negative N Negative Urine Ketones Negative N Negative Urine Protein Negative N Negative Urine Leukocytes 2+ Abnormal Negative Urine Blood Negative N Negative Urine Nitrite Negative N Negative Urine Bilirubin Negative N Negative Urine Glucose Negative N Negative Urine White Blood Cell 1+(6-10/hpf) Abnormal Absent Urine Red Blood Cell Trace N Absent Urine Bacteria Absent N Absent Urine Squamous Epithelial Cell Present Abnormal Absent Laboratory test 04/27/2014 [facility] Amnisure No Membrane N 10 [place] [address] Rupt <SEE [phone] NOTE> Laboratory test 03/18/2014 [facility] Glucose 1 HR 129 mg/dL N 70-16 [place] [address] Post Prandial 0 [phone] CBC With No Diff 03/18/2014 [facility] White Blood 15.8 10^3/uL High 4.8-1 [place] [address] Count 0.8 [phone] Red Blood Count 3.70 10^6/uL Low 4.0-5.4 Hemoglobin 12.2 g/dL N 12.0-16.0 Hematocrit 36 % N 35-47 Mean Corpuscular Volume 97 fL N 80-97 Mean Corpuscular Hemoglobin 33 pg High 27-31 Mean Corpuscular HGB Conc 34 g/dL N 31-36 Red Cell Distribution Width 14 % N 10.5-15 Platelet Count 161 10^3/uL N 150-450 Mean Platelet Volume 11 um3 High 7.4-10.4 Pap Plus HPV 02/13/2014 [facility] HPV HR- 11 GC/Chlamydia 12/09/2013 [facility] GC/Chlamydia Rna (SEE NOTE) 12 [place] [address] [phone] RPR 11/10/2013 [facility] Syphilis IgG [place] [address] [phone] RPR Nonreactive Nonreactive RPR Titer TNP Pediatric/Maternal YES CBC With No 11/10/2013 [facility] White Blood 17.3 10^3/uL High 4.8-10.8 [place] [address] Count [phone] Red Blood Count 4.11 10^6/uL 4.0-5.4 Hemoglobin 12.7 g/dL 12.0-16.0 Hematocrit 38 % 35-47 Mean Corpuscular Volume 92 fL 80-97 Mean Corpuscular Hemoglobin 31 pg 27-31 Mean Corpuscular HGB Conc 34 g/dL 31-36 Red Cell Distribution Width 15 % 10.5-15 Platelet Count 178 10^3/uL 150-450 Mean Platelet Volume 12 um3 High 7.4-10.4 Type And Screen 11/10/2013 [facility] Patient Blood Type A Positive [place] [address] [phone] Antibody Screen NEGATIVE HIV 1/2 AB 11/10/2013 [facility] HIV 1 2 Nonreactive Nonreactive 13 Evaluation [place] [address] Antibody [phone] Laboratory 11/10/2013 [facility] Carbamazepine < 0.1 g/mL Low 4.0-12.0 test finding [place] [address] [phone] Urine Culture 11/10/2013 [facility] Urine Culture (SEE NOTE) 14 [place] [address] Sensitivities [phone] PNL 11/10/2013 [facility] Rubella Screen [place] [address] [phone] Hemoglobin A1c 5.3 % Less than 6.0 15 Hepatitis B Surface Antigen Nonreactive Nonreactive 16 Parvovirus B19 AB 11/10/2013 [facility] Parvovirus B19 AB (Igm) 0.2 index < 0.9 17 (Igg,M) Parvovirus B19 AB (Igg) 5.0 index High <0.9 Toxoplasma AB(Igg,M),Eia 11/10/2013 [facility] Toxoplasma Igg AB <0.91 INDEX 18 Toxoplasma Igm AB NEGATIVE Laboratory test 06/25/2013 [facility] Surgical RUN DATE: 19 finding [place] Pathology 06/27/ [phone] <SEE NOTE> Laboratory test 06/25/2013 [facility] RUN DATE: 20 finding [place] Pathology 07/16/ [phone] <SEE NOTE> Laboratory test 05/01/2013 [facility] B Strep (SEE 21 [place] [address] Culture Screen NOTE) [phone] Glucose 03/11/2013 [facility] GTT 2HR (SEE GD, 22 Tolerance 2[place] [address] Gestational NOTE) fasting 92 Gestational [phone] CBC With No 03/11/2013 [facility] White Blood 20.4 High 4.8- 10.8 [place] [address] Count 10^3/uL [phone] Red Blood Count 3.70 10^6/uL Low 4.0-5.4 Hemoglobin 12.1 g/dL 12.0-16.0 Hematocrit 36 % 35-47 Mean Corpuscular Volume 98 fL High 80-97 Mean Corpuscular Hemoglobin 33 pg High 27-31 Mean Corpuscular HGB Conc 34 g/dL 31-36 Red Cell Distribution Width 14 % 10.5-15 Platelet Count 144 10^3/uL Low 150-450 Mean Platelet Volume 10 um3 7.4-10.4 Laboratory test 02/03/2013 [facility] Carbamazepine 5.1 g/mL 4.0-12.0 23 [place] [address] [phone] PNL No 11/12/2012 [facility] Rubella Screen [place] [address] [phone] Hemoglobin A1c 5.7 % Less than 6.0 24 Hepatitis B Surface Antigen Nonreactive Nonreactive 25 GC/Chlamydia 11/12/2012 [facility] GC/Chlamydia (SEE NOTE) 26 [place] [address] Rna [phone] Laboratory 11/12/2012 [facility] Cytology RUN DATE: 27 [place] [address] 11/13/ <SEE [phone] NOTE> Laboratory 11/12/2012 [facility] Carbamazepine < 0.2 g/mL Low 4.0-12.0 28 [place] [address] [phone] HIV 1/2 AB 11/12/2012 [facility] HIV 1 2 Nonreactive Nonreactive 29 [place] [address] Antibody [phone] Type And 11/12/2012 [facility] Patient Blood [place] [address] Type [phone] Antibody Screen NEGATIVE CBC With No 11/12/2012 [facility] White Blood 20.2 10^3/uL High 4.8-10.8 [place] [address] Count [phone] Red Blood Count 4.36 10^6/uL 4.0-5.4 Hemoglobin 13.4 g/dL 12.0-16.0 Hematocrit 42 % 35-47 Mean Corpuscular Volume 96 fL 80-97 Mean Corpuscular Hemoglobin 31 pg 27-31 Mean Corpuscular HGB Conc 32 g/dL 31-36 Red Cell Distribution Width 15 % 10.5-15 Platelet Count 131 10^3/uL Low 150-450 Mean Platelet Volume 13 um3 High 7.4-10.4 RPR 11/12/2012 [facility] Syphilis IgG [place] [address] [phone] RPR Nonreactive Nonreactive RPR Titer TNP Pediatric/Maternal YES Laboratory test finding 02/20/2005 [facility] 1HR Glucose 110 mg /dL 30 [place], [place] [address] [phone] 3HR Glucose 62 mg/dL 31 2HR Glucose 98 mg/dL 32 Fasting Glucose 79 mg/dL 70-110 Laboratory test 02/09/2005 [facility] Genital For GRP NEGATIVE FOR 33 [place] [address] B Strep Only ROLAND <SEE NOTE> [phone] Urine Culture 08/10/2004 [facility] Urine Culture FEW 34 [place] [address] Sensitivi [ENTEROBACTE [phone] <SEE NOTE> 1 IRREGULAR MENSTRUATION, UNSPECIFIED [id number] 2 [id number] 3 [id number] 4 SEE RESULT BELOW Name: FER ANDERSON : [address]: Ignacio Lopez MD Acct: [id number] Unit: [id number] AGE: 33 Location: [facility] Re10/22/18 SEX: F Status: REG REF SPEC: [id number] YIMI: 10/22/18-1020 [facility] DR: Ignacio Lopez MD REQ: [id number] RECD: 10/22/18229 STATUS: MAURIZIO RESENDIZ DR: Kinjal Sharpe MD _ ORDERED: LEVEL 4 COMMENTS: [id number] FINAL DIAGNOSIS Uterus, endometrium, biopsy: -- Weakly proliferative endometrium. -- No evidence of hyperplasia or malignancy. PRE-OPERATIVE DIAGNOSIS Dysfunctional uterine bleeding GROSS DESCRIPTION The specimen is received in formalin labeled, EM BX, and consists of a 2.6 x 2.4 x 0.3 cm aggregate of transparent to focally blood-tinged mucus admixed with scant naranjo -brown soft tissue fragments. The specimen is filtered and submitted entirely in one cassette. Signed by and Reported on: Diana Ludwig MD 10/24/18 1051 END OF REPORT DEPARTMENT OF PATHOLOGY, [address] [place] [address] Celestine Hoffmann M.D. Director [facility] # [id number] 6 SEE RESULT BELOW Name: FER ANDERSON : [address]: Ignacio Lopez MD Acct: [id number] Unit: [id number] AGE: 33 Location: [facility] Re05/08/18 SEX: F Status: REG REF SPEC: [id number] YIMI: 05/08/18-1020 [facility] DR: Ignacio Lopez MD REQ: [id number] RECD: 05/08/18-160 STATUS: MAURIZIO RESENDIZ DR: Kinjal Sharpe MD _ ORDERED: TP IMAGE ANALYS, HPV/Thin Prep COMMENTS: [id number] Negative for Intraepithelial lesion or Malignancy Shift in igor suggestive of bacterial vaginosis Date Time Test Result Flag (u) Normal Range 05/08/18 1020 @ HPV RNA Negative Negative @ @ The high-risk HPV types detected by the assay include: 16, @ 18, 31, 33, 35, 39, 45, 51, 52, 56, 58, 59, 66, and 68. A. Ectocervical/Endocervical Specimen Adequacy: Satisfactory of evaluation Transformation zone component identified Patient Information: HPV: High risk HPV RNA testing regardless of pap results. Actual Specimen Date: 05/08/18 Last Menstrual Date: 04/12/18 Signed by and Reported on: ANGEL Reis(ASCP) 4358 This Pap test was evaluated with the assistance of the Lucid ColloidsPrep Test Imaging System. Due to cytologic findings at the filling winder microscope, comprehensive manual rescreening by a Hand Screen Printer may be required. The Pap Smear is a screening test designed to aid in the detection of premalignant and malignant conditions of the uterine cervix. It is not a diagnostic procedure and should not be used as the sole means of detecting cervical cancer. Both false- positive and false- negative reports do occur. Depending on your risk status, a Pap smear should be obtained and evaluated every 1-3 years. END OF REPORT DEPARTMENT OF PATHOLOGY, [address] [place] [address] Celestine Hoffmann M.D. Director [facility] # [id number] RUN DATE: 07/01/14 [facility] LIVE PAGE 1 RUN TIME: [address] [place] [address] Specimen Inquiry Name: FER ANDERSON : [address]: Shiela Iniguez MD Acct: [id number] Unit: [id number] AGE: 29 Location: [facility] Re06/29/14 SEX: F Status: REG REF SPEC: [id number] YIMI: 06/29/14-[address]: Shiela Iniguez MD REQ: [id number] RECD: 06/29/145384 STATUS: SOUT _ ORDERED: IMAGE ANALYSIS FINAL DIAGNOSIS Negative for Intraepithelial lesion or Malignancy Shift in igor suggestive of bacterial vaginosis A. Ectocervical/Endocervical Specimen Adequacy: Satisfactory of evaluation Transformation zone component identified Patient Information: HPV: Thin Layer Pap Test w/reflex to high risk HPV DNA testing when ASCUS Actual Specimen Date: 06/29/14 Last Menstrual Date: 08/25/12 Date of Last Specimen: 02/13/14 Previous Abnormal Pap Smears?:Y If Yes, enter Diagnosis: High grade squamous intraepithelial lesion. Signed (signature on file) Celestine Hoffmann MD 8852 This Pap test was evaluated with the assistance of the ThinPrep Test Imaging System. Due to cytologic findings at the filling winder microscope, comprehensive manual rescreening by a Hand Screen Printer may be required. The Pap Smear is a screening test designed to aid in the detection of premalignant and malignant conditions of the uterine cervix. It is not a diagnostic procedure and should not be used as the sole means of detecting cervical cancer. Both false- positive and false- negative reports do occur. Depending on your risk status, a Pap smear shoudl be obtained and evaluated every 1-3 years. END OF REPORT * ML=Testing performed at Main Lab DEPARTMENT OF PATHOLOGY, [facility] [employer] [place], [place] [address] Celestine Hoffmann M.D. Director [facility] # [id number] RUN DATE: 05/03/14 [facility] LIVE PAGE 1 RUN TIME: [address] [facility] [employer] [place], [place] [address] Specimen Inquiry Name: FER ANDERSON : [address]: Ailyn New MD Acct: [id number] Unit: [id number] AGE: 29 Location: [facility] Re05/01/14 SEX: F Status: REG REF SPEC: [id number] YIMI: 05/01/14-1342 [facility] DR: Ailyn New MD REQ: [id number] RECD: 05/01/14 STATUS: COMP _ SOURCE: CER/VAG/RE SPDESC: ORDERED: Grp B Strp Scrn QUERIES: Is Patient Penicillin Allergic? N Medent Number [id number] Procedure Result Verified Site Group B Strep Culture Screen Final 05/03/14- 112 ML Group B Strep Screen Negative END OF REPORT * ML=Testing performed at Main Lab DEPARTMENT OF PATHOLOGY, [address] [place] [address] Celestine Hoffmann M.D. Director [facility] # [id number] RUN DATE: 04/29/14 [facility] LIVE PAGE 1 RUN TIME: [address] [place] [address] Specimen Inquiry Name: JUSTINFER Mona : [address]: Hayde Braxton MD Acct: [id number] Unit: [id number] AGE: 29 Location: [facility] Re04/27/14 SEX: F Status: DEP REF SPEC: [id number] YIMI: 04/27/14-[address]: Hayde Braxton MD REQ: [id number] RECD: 04/27/14 STATUS: SOHAN RESENDIZ DR: Raoul Cani MD _ SOURCE: URINE SPDESC: ORDERED: Urine Culture Procedure Result Verified Site Urine Culture Final 04/29/14- 0940 ML Organism 1 NORMAL IGOR Sharples Count >100,000 (Many) CFU/ML END OF REPORT * ML=Testing performed at Main Lab DEPARTMENT OF PATHOLOGY, [address] [place] [address] Celestine Hoffmann M.D. Director [facility] # [id number] No Membrane Rupture 11 Cytology Laboratory [address] [place] [address], [facility] [address] [place] [address] CYTOLOGY REPORT Name: Fer Anderson : 1985 (Age: 28) Sex: F Location: [facility] GYN [facility] Med. Rec. # [id number] Date Collected: 02/13/2014 Billing #: [id number] Date Received: 02/16/2014 Requisition # [id number] Physician(s): ADRIANA PAULSON MD Source of Specimen: ENDOCERVICAL/ECTOCERVICAL THIN PREP Clinical Information: Date of Last Menstrual Period: 08/25/13 Menstrual History: Dysplasia/Cancer History: HSIL: 11/12/12 Interpretation: NEGATIVE FOR INTRAEPITHELIAL LESION OR MALIGNANCY. REACTIVE CELLULAR CHANGES ASSOCIATED WITH INFLAMMATION. SHIFT IN IGOR SUGGESTIVE OF BACTERIAL VAGINOSIS. Specimen Adequacy: SATISFACTORY FOR EVALUATION. Additional Findings: ENDOCERVICAL/TRANSFORMATION ZONE ABSENT. jib Electronic Signature Timothy Dominguez MD Reported: 02/19/2014 Also seen by: Lenore Rowe, CT (ASCP) Cyndie Child CT ([facility]) [facility] [employer] [facility] HPV High Risk Date Ordered: 02/17/2014 Status: Signed Out Date Reported: 02/18/2014 High Risk NEGATIVE (HPV types 16, 18, 31, 33, 35, 39, 45, 51, 52, 56, 58, 59, 66, 68) APTIMA Electronic Signature Marichuy Abdirahman ([facility]) [facility] [employer] [facility] ICD-9 Code(s) V76.2 A; 616.9 616.10 12 RUN DATE: 12/11/13 [facility] LIVE PAGE 1 RUN TIME: [address] [place] [address] Specimen Inquiry Name: FER LOO : [address]: Ailyn New MD Acct: [id number] Unit: [id number] AGE: 28 Location: [facility] Re12/09/13 SEX: F Status: REG REF SPEC: [id number] YIMI: 12/09/[address]: Ailyn New MD REQ: [id number] RECD: 12/09/13 STATUS: COMP _ SOURCE: URINE SPDESC: ORDERED: GC/Chlam RNA QUERIES: Medent Number [id number] Procedure Result Verified Site Chlamydia Trachomatis RNA Final 12/11/13- 1308 ML NEGATIVE for Chlamydia trachomatis rRNA GC (N. gonorrhoeae) RNA Final 12/11/13- 1241 ML NEGATIVE for Neisseria gonorrhoeae rRNA A negative result does not preclude the presence of a C. trachomatis or N. gonorrhoeae infection because results are dependent on adequate specimen collection, absence of inhibitors, and sufficient rRNA to be detected. Test results may be affected by improper specimen collection, improper storage, technical error, or specimen mixup. Limitations of the Procedure: The Aptima Combo 2 Assay is not intended for the evaluation of suspected sexual abuse or for other medico-legal indications. For those patients for whom a false positive result may have adverse psychosocial impact, the CDC recommends retesting by a method using an alternate technology. Therapeutic failure or success cannot be determined with the Aptima Combo 2 Assay since nucleic acid may persist following appropriate antimicrobial therapy. Results from the Aptima Combo 2 Assay should be interpreted in conjunction with other laboratory and clinical data available to the clinican. CONTINUED ON NEXT PAGE * ML=Testing performed at [facility] DEPARTMENT OF PATHOLOGY, [address] [place] [address] Celestine Hoffmann M.D. Director [facility] Permit #[id number] RUN DATE: 12/11/13 [facility] LIVE PAGE 2 RUN TIME: 49[address] [place], [place] [address] Specimen Inquiry Patient: FER LOO [id number] (Continued) Specimen: [id number] Collected: 12/09/13 Received: 12/09/13-152 (Continued) Procedure Result Verified Site GC (N. gonorrhoeae) RNA Final (continued) 12/11/13- 1241 Performance characteristics for detecting C. trachomatis and N. gonorrhoeae are derived from high prevalence populations. Positive results in low prevalence populations should be interpreted carefully with the understanding that the likelihood of a false positive may be higher than a true positive. END OF REPORT * ML=Testing performed at Main Lab DEPARTMENT OF PATHOLOGY, [address] [place] [address] Celestine Hoffmann M.D. Director [facility] Permit #[id number] 13 It is recognized that currently available assays for the detection of antibodies to HIV-1 and/or HIV-2 may not detect all infected individuals. HIV antibodies may be undetectable in some stages of the infection and in some clinical conditions. The performance of this assay has not been established for populations of infants or children. Assayed by Chemiluminescence Microparticle Immunoassay on the Siemens Advia Centaur CP. Values obtained with different methods or kits cannot be used interchangeably.The diagnostic specificity of the ADVIA Centaur 1/O/2 Enhanced assay in the low risk population was 99.90% (6052/6058) with a 95% confidence interval of 99.78 to 99.96%. 14 RUN DATE: 11/12/13 [facility] LIVE PAGE 1 RUN TIME: [address] [place] [address] Specimen Inquiry Name: FER LOO : [address]: Neela Romeo [facility] Acct: [id number] Unit: [id number] AGE: 28 Location: [facility] Re11/10/13 SEX: F Status: REG REF SPEC: [id number] YIMI: 11/10/13-1359 [facility] DR: Neela Romeo [facility] REQ: [id number] RECD: 11/10/13 STATUS: COMP _ SOURCE: URINE SPDESC: ORDERED: Urine Culture QUERIES: Medent Number [id number] Procedure Result Verified Site Urine Culture Final 11/12/13- 932 ML Organism 1 NORMAL IGOR Sharples Count 50-75,000 (Many) CFU/ML END OF REPORT * ML=Testing performed at Main Lab DEPARTMENT OF PATHOLOGY, [facility] [employer] [place], [place] [address] Celestine Hoffmann M.D. Director [facility] Permit #[id number] 15 Therapeutic target for the treatment of diabetes Mellitus patients is <7% HBA1C, and in selective patients <6.0%.Please refer to [place] [employer] Diabetic care guidelines for further information. 16 YES 17 Reference Range: <0.9 Negative 0.9-1.1 Equivocal >1.1 Positive IgG persists for years and provides life-long immunity. Results from any one IgM assay should not be used as a sole determinant of a current or recent infection. Because IgM tests can yield false positive results and low levels of IgM antibody may persist for months post infection, reliance on a single test result could be misleading. If an acute infection is suspected, consider obtaining a new specimen and submit for both IgG and IgM testing in two or more weeks. To diagnose current infection, consider Parvovirus B19 DNA, PCR. 18 INDEX VALUE RESULTS INTERPRETATION ------- < OR=0.90 NEGATIVE NO TOXOPLASMA IGG ANTIBODY DETECTED 0.91 - 1.09 EQUIVOCAL PRESENCE OR ABSENCE OF TOXOPLASMA IGG ANTIBODY CANNOT BE DISCERNED > OR=1.10 POSITIVE TOXOPLASMA IGG ANTIBODY DETECTED A POSITIVE RESULT INDICATES THAT THE PATIENT HAS ANTIBODY TO TOXOPLASMA IGG. IT DOES NOT DIFFERENTIATE BETWEEN AN ACTIVE OR PAST INFECTION. THE CLINICAL DIAGNOSIS MUST BE INTERPRETED IN CONJUNCTION WITH THE CLINICAL SIGNS AND SYMPTOMS OF THE PATIENT. 19 RUN DATE: 06/27/13 [facility] LIVE PAGE 1 RUN TIME: [address] [place] [address], [place], [place] [address] Specimen Inquiry Name: FER LOO : [address]: Adriana Paulson MD Acct: [id number] Unit: [id number] AGE: 28 Location: [facility] Re06/25/13 SEX: F Status: REG REF SPEC: [id number] YIMI: 06/25/13-[address]: Adriana Paulson MD REQ: [id number] RECD: 06/25/13 STATUS: SOUT _ ORDERED: LEVEL IV/2 FINAL DIAGNOSIS 1. Cervix, biopsy: A. Benign endocervical mucosa and scant fragment of benign squamous mucosa with no significant pathologic abnormalities. B. No evidence of viral cytopathic effect, dysplasia, or malignancy. 2. Endocervix, curettage: Benign fragments of endocervical mucosa with no significant pathologic abnormalities. PRE-OPERATIVE DIAGNOSIS High grade squamous intraepithelial lesion. GROSS DESCRIPTION 1. The specimen is received in formalin labeled eFr Loo, Cervical Biopsy , and consists of multiple portions of naranjo-white and mucoid tissue that in aggregate measure 1.2 x 0.9 x 0.3 cm. Submitted entirely, one cassette. 2. The specimen is received in formalin labeled Fer Loo, ECC, and consists of red and translucent mucoid tissue that in aggregate measure 1.9 x 1.4 x 0.5 cm. Submitted entirely, one cassette. 1. Signed (signature on file) Diana Ludwig MD 1256 END OF REPORT * ML=Testing performed at Main Lab DEPARTMENT OF PATHOLOGY, [facility] [employer] [place] [address] Celestine Hoffmann M.D. Director [facility] Permit #[id number] RUN DATE: 07/16/13 [facility] LIVE PAGE 1 RUN TIME: [address] [facility] [employer] [place], [place] [address] Specimen Inquiry Name: FER LOO : [address]: Adriana Paulson MD Acct: [id number] Unit: [id number] AGE: 28 Location: [facility] Re06/25/13 SEX: F Status: REG REF SPEC: [id number] YIMI: 06/25/13-1111 [facility] DR: Adriana Paulson MD REQ: [id number] RECD: 06/25/139990 STATUS: SOUT _ ORDERED: P16 STAIN, LEVEL IV/2 THIS IS A CORRECTED REPORT 07/16/13 Corrected Report FINAL DIAGNOSIS 1. Cervix, biopsy: A. Focal low grade squamous intraepithelial lesion (see comment). 2. Endocervix, curettage: Benign fragments of endocervical mucosa with no significant pathologic abnormalities. COMMENTS: A P16 immuno stain performed with appropriately reacting controls is patchily positive in an area previously interpreted as squamous metaplasia. In light of this positive staining this biopsy is re-interpreted as low grade squamous intraepithelial lesion. The findings were communicated with Dr. Paulson on 07/16/13. PRE-OPERATIVE DIAGNOSIS High grade squamous intraepithelial lesion. GROSS DESCRIPTION 1. The specimen is received in formalin labeled Fer Loo, Cervical Biopsy, and consists of multiple portions of naranjo-white and mucoid tissue that in aggregate measure 1.2 x 0.9 x 0.3 cm. Submitted entirely, one cassette. 2. The specimen is received in formalin labeled Fer CONTINUED ON NEXT PAGE * ML=Testing performed at Main Lab DEPARTMENT OF PATHOLOGY, [facility] [employer] [place] [address] Celestine Hoffmann M.D. Director [facility] Permit #[id number] RUN DATE: 07/16/13 [facility] LIVE PAGE 2 RUN TIME: [address] [place] [address] Specimen Inquiry Patient: FER LOO [id number] (Continued) GROSS DESCRIPTION (Continued) GROSS DESCRIPTION (Continued) Chon, ONEIL, and consists of red and translucent mucoid tissue that in aggregate measure 1.9 x 1.4 x 0.5 cm. Submitted entirely, one cassette. Signed (signature on file) Diana Ludwig MD 11/27 0956 END OF REPORT * ML=Testing performed at Main Lab DEPARTMENT OF PATHOLOGY, [facility] [employer] [place] [address] Celestine Hoffmann M.D. Director [facility] Permit #[id number] RUN DATE: 05/03/13 [facility] LIVE PAGE 1 RUN TIME: [address] [facility] [employer] [place], [place] [address] Specimen Inquiry Name: FER LOO : [address]: Karrie Stafford Acct: [id number] Unit: [id number] AGE: 28 Location: [facility] Re05/01/13 SEX: F Status: REG REF SPEC: [id number] YIMI: 05/01/13-[address]: Karrie Stafford MD REQ: [id number] RECD: 05/01/131540 STATUS: COMP _ SOURCE: CER/VAG/RE SPDESC: ORDERED: Grp B Strp Scrn QUERIES: Is Patient Penicillin Allergic? N Medent Number [id number] Procedure Result Verified Site Group B Strep Culture Screen Final 05/03/13- 0956 ML Group B Strep Screen Negative END OF REPORT * ML=Testing performed at Main Lab DEPARTMENT OF PATHOLOGY, [address] [place] [address] Celestine Hoffmann M.D. Director [facility] Permit #[id number] 22 GLU Fast 92 Col: 03/11/13 075 GLU 1HR 165 Col: 03/11/13 0859 GLU 2HR 129 Col: 03/11/13 0959 GTT Interp Col: 03/11/13 075 Gestational Diabetes Diagnostic: OGTT Glucose Load: samples drawn after 75-gram glucose drink Target Levels: Fasting <92 mg/dl 1hr <180 mg/dl 2hr <153 mg/dl If ONE or more values meet or exceed the target level, gestational diabetes is diagnosed. 23 The detection limit for CARBAMAZEPINE is 2.0 mcg/ml . Values less than 2.0 mcg/ml cannot be accurately measured. 24 Therapeutic target for the treatment of diabetes Mellitus patients is <7% HBA1C, and in selective patients <6.0%.Please refer to [place] [employer] Diabetic care guidelines for further information. 25 YES 26 RUN DATE: 11/15/12 [facility] LIVE PAGE 1 RUN TIME: [address] [place] [address] Specimen Inquiry Name: FER LOO : [address]: Charmaine Anthony NP Acct: [id number] Unit: [id number] AGE: 27 Location: [facility] Re11/12/12 SEX: F Status: REG REF SPEC: [id number] YIMI: 11/12/12-58 [facility] DR: Charmaine Anthony NP REQ: [id number] RECD: 11/12/12 STATUS: COMP _ SOURCE: ALEX VAZQUEZC: ORDERED: JACQUIE/Chuck RNA QUERIES: Medent Number [id number] Procedure Result Verified Site Chlamydia Trachomatis RNA Final 11/15/12- 1334 ML NEGATIVE for Chlamydia trachomatis rRNA GC (N. gonorrhoeae) RNA Final 11/15/12- 1333 ML NEGATIVE for Neisseria gonorrhoeae rRNA A negative result does not preclude the presence of a C. trachomatis or N. gonorrhoeae infection because results are dependent on adequate specimen collection, absence of inhibitors, and sufficient rRNA to be detected. Test results may be affected by improper specimen collection, improper storage, technical error, or specimen mixup. Limitations of the Procedure: The Aptima Combo 2 Assay is not intended for the evaluation of suspected sexual abuse or for other medico-legal indications. For those patients for whom a false positive result may have adverse psychosocial impact, the [facility] recommends retesting by a method using an alternate technology. Therapeutic failure or success cannot be determined with the Aptima Combo 2 Assay since nucleic acid may persist following appropriate antimicrobial therapy. Results from the Aptima Combo 2 Assay should be interpreted in conjunction with other laboratory and clinical data available to the clinican. CONTINUED ON NEXT PAGE * ML=Testing performed at Main Lab DEPARTMENT OF PATHOLOGY, [address] [place] [address] Celestine Hoffmann M.D. Director [facility] Permit #[id number] RUN DATE: 11/15/12 [facility] LIVE PAGE 2 RUN TIME: [address] [place] [address] Specimen Inquiry Patient: FER LOO Mona [id number] (Continued) Specimen: [id number] Collected: 11/12/12 Received: 11/12/12 (Continued) Procedure Result Verified Site GC (N. gonorrhoeae) RNA Final (continued) 11/15/121332 Performance characteristics for detecting C. trachomatis and N. gonorrhoeae are derived from high prevalence populations. Positive results in low prevalence populations should be interpreted carefully with the understanding that the likelihood of a false positive may be higher than a true positive. END OF REPORT * ML=Testing performed at Main Lab DEPARTMENT OF PATHOLOGY, [facility] [employer] [place] [address] Celestine Hoffmann M.D. Director [facility] Permit #[id number] RUN DATE: 11/13/12 [facility] LIVE PAGE 1 RUN TIME: [address] [facility] [employer] [place], [place] [address] Specimen Inquiry Name: FRE LOO : [address]: Charmaine Anthony NP Acct: [id number] Unit: [id number] AGE: 27 Location: [facility] Re11/12/12 SEX: F Status: REG REF SPEC: [id number] YIMI: 11/12/[address]: Charmaine Anthony NP REQ: [id number] RECD: 11/13/12 STATUS: SOUT _ ORDERED: IMAGE ANALYSIS, PAP SM PATH REV FINAL DIAGNOSIS EPITHELIAL CELL ABNORMALITIES High grade squamous intraepithelial lesion (HSIL) encompassing: moderate and severe dysplasia. COMMENTS: Consider Colposcopy if clinically indicated. A. Ectocervical/Endocervical Specimen Adequacy: Satisfactory of evaluation Transformation zone component identified Patient Information: HPV: Thin Layer Pap Test w/reflex to high risk HPV DNA testing when ASCUS Actual Specimen Date: 11/12/12 Last Menstrual Date: 08/28/12 ?: Y Previous Abnormal Pap Smears?:Y If Yes, enter Diagnosis: per patient: High grade squamous intraepithelial lesion. Loop electrosurgical excision procedure. Other Pertinent History: Prior Elsewhere, unknown Signed (signature on file) Celestine Hoffmann [place] 7948 This Pap test was evaluated with the assistance of the Lucid ColloidsPrep Test Imaging System. Due to cytologic findings at the filling winder microscope, comprehensive manual rescreening by a Hand Screen Printer may be required. The Pap Smear is a screening test designed to aid in the detection of premalignant and malignant conditions of the uterine cervix. It is not a diagnostic procedure and should not be used as the sole means of detecting cervical cancer. Both false- positive and false- negative reports do occur. Depending on your risk status, a Pap smear shoudl be obtained and evaluated every 1-3 years. END OF REPORT * ML=Testing performed at Main Lab DEPARTMENT OF PATHOLOGY, [address] [place] [address] Celestine Hoffmann M.D. Director [facility] Permit #[id number] 28 The detection limit for CARBAMAZEPINE is 2.0 mcg/ml . Values less than 2.0 mcg/ml cannot be accurately measured. 29 It is recognized that currently available assays for the detection of antibodies to HIV-1 and/or HIV-2 may not detect all infected individuals. HIV antibodies may be undetectable in some stages of the infection and in some clinical conditions. The performance of this assay has not been established for populations of infants or children. Assayed by Chemiluminescence Microparticle Immunoassay on the Siemens Advia Centaur CP. Values obtained with different methods or kits cannot be used interchangeably.The diagnostic specificity of the ADVIA Centaur 1/O/2 Enhanced assay in the low risk population was 99.90% (6052/6058) with a 95% confidence interval of 99.78 to 99.96%. 30 REFERENCE RANGE: 20-50 MG/DL ABOVE FASTING 31 REFERENCE RANGE: FASTING OR 10 MG/DL BELOW 32 REFERENCE RANGE: 5-15 MG/DL ABOVE FASTING 33 NEGATIVE FOR GROUP B STREPTOCOCCUS AFTER 48 HOURS 34 FEW [ENTEROBACTERIACEAE]M - SENSITIVITY NOT INDICATED WITH NORMAL URETHRAL OR PERINEAL IGOR ENTEROBACTERIACEAE Procedures Date Code Description Status 10/31/2018 69573 Endometrial Ablation,Hysteroscopy Completed 10/31/2018 05481 Laparoscopy, Fulguration Oviducts Completed 07/03/2014 40876 Injection Intramuscular Or Subcutaneous Completed 05/21/2014 92721 Antepartum Care 7 Or More Visits Completed 05/01/2014 16337 Echography Uterus Follow-Up Or Repeat Completed 04/27/2014 99852 Biophysical Profile W/ NST Completed 04/03/2014 42843 Echography Uterus Follow-Up Or Repeat Completed 03/18/2014 39411 Echography Uterus Follow-Up Or Repeat Completed 02/13/2014 92334 Colposcopy Of The Cervix Inc Upper/Adjacent Vagina Completed 01/15/2014 70519 Echography Uterus Complete Completed 11/10/2013 27275 OB Ultrasound First Trimester Completed 06/25/2013 36030 Colposcopy W/Biopsy Cervix/Endocervical Curettage Completed 05/08/2013 18867 Non-Stress Test Completed 05/06/2013 74993 Antepartum Care 7 Or More Visits Completed 05/01/2013 55925 Non-Stress Test Completed 04/23/2013 11608 Non-Stress Test Completed 03/13/2013 52234 Injection Intramuscular Or Subcutaneous Completed 01/06/2013 45131 Echography Uterus Complete Completed 12/09/2012 85826 Colposcopy Of The Cervix Inc Upper/Adjacent Vagina Completed 04/14/2005 94734 Care Only Completed 03/05/2005 09368 Obstetric Care Routine Completed 03/03/2005 54318 Care Completed 02/24/2005 42720 Care Completed 02/09/2005 34965 Care Completed 01/26/2005 61830 Care Completed 01/12/2005 46282 Echography Uterus Complete Completed 01/09/2005 87617 Care Completed 12/27/2004 04193 Care Completed 11/15/2004 13299 Care Completed 09/07/2004 04804 Echography Uterus Limited Completed 08/30/2004 51342 Care Completed 08/10/2004 59546 Care Completed Encounters Type Date Location Provider Dx Diagnosis Office Visit 10/22/2018 [facility] Ignacio Lopez Z23 Encounter for 9:00a Torin immunization Z01.818 Encounter for other preprocedural examination Office Visit 08/22/2018 8:40a [facility] Igancio Campbell N92.6 Irregular Torin Lopez menstruation, unspecified N94.5 Secondary dysmenorrhea Office Visit 06/10/2018 10:00a [facility] Ignacio Campbell T38.4x6A Underdosing of oral Torin Lopez contraceptives, initial encounter Office Visit 05/08/2018 9:40a [facility] Ignacio Campbell Z01.419 Encntr for rn imaging exam Torin Lopez (general) (routine) w/o abn findings Z30.8 Encounter for other contraceptive management Office Visit 05/23/2014 2:11p Non - Surgical Hayde Braxton V24.2 [facility] M.D. Examination Routine Follow Up Office Visit 05/22/2014 7:30a Delivery Shiela V24.2 Care & MD Hira Examination Routine Follow Up Office Visit 05/21/2014 2:11p Delivery Shiela V24.2 Care & MD Hira Examination Routine Follow Up Office Visit 04/27/2014 8:21a Delivery Hayde Braxton, 789.9 Abdomen & Pelvis M.D. Symptoms Other 644.13 Labor Threatened Other Antepartum Cond Or Compl Office Visit 07/21/2005 3:00p [facility] Office Lexx Higginbotham, V72.31 Routine Instrument Lens Generator M.D. Examination Plan of Treatment 11/27/2018 - Ignacio Lopez M.D.N94.5 Secondary dysmenorrheaComments:? mild endometritis will rx augmentin
[2018-12-02 11:02] VITALS: BP 119/82
--- NOTE | 2018-12-02 11:08 | UC ---
Throat Pain/Nasal Stefan HPI - HPI Summary HPI Summary: 33 yo female presents with intermittently productive cough for the last week. She has been using her at home nebulizer with mild relief at times. Has been taking mucinex and sudafed OTC with some relief as well. She is still smoking daily. Denies fever, chills, sore throat, sinus symptoms, SOB, chest pain. She also tells me that she has been on Augmentin for the last 4 days by her OBGYN for an "internal infection" after surgery about a month ago. - History of Current Complaint Chief Complaint: UCRespiratory Stated Complaint: SINUS COMPLAINT Time Seen by Provider: 12/02/18 11:08 Hx Obtained From: Patient Hx Last Menstrual Period: 10/21/18 Onset/Duration: Gradual Onset Severity: Mild Pain Intensity: 3 Pain Scale Used: 0-10 Numeric - Allergies/Home Medications Allergies/Adverse Reactions: Allergies Allergy/AdvReac Type Severity Reaction Status Date / Time No Known Allergies Allergy Verified 12/02/18 11:03 Home Medications: Home Medications Amoxicillin/Clavulanate TAB* [Augmentin TAB 500 mg*] 500 mg PO BID 12/02/18 [ History Confirmed 12/02/18] Dm/Acetaminophen/Doxylamine [Night Cold-Flu Relief Liq Gel] 1 each PO DAILY PRN 12/02/18 [History Confirmed 12/02/18] Ibuprofen TAB* [Motrin TAB* 600 MG] 600 mg PO Q6H PRN 12/02/18 [History Confirmed 12/02/18] Oxycodone HCl/Acetaminophen [Percocet 5-325 mg Tablet] 1 each PO Q4HR PRN MDD 6 12/02/18 [History Confirmed 12/02/18] lamoTRIgine TAB(*) [LaMICtal TAB(*)] 75 mg PO BEDTIME 12/02/18 [History Confirmed 12/02/18] PMH/Surg Hx/FS Hx/Imm Hx Respiratory History: Asthma Psychological History: Bipolar Disorder Other History Of: Negative For: Anticoagulant Therapy - Surgical History Surgical History: Yes Surgery Procedure, Year, and Place: ear tubes as a child,. HYSTEROSCOPY. LAPAROSCOPY. D&C. TONSILS AND ADENOIDS REMOVED;. LIPOMA REMOVED FROM RIGHT ARM -07/29/19 - Family History Known Family History: Positive: Cardiac Disease - Social History Lives: With Family Alcohol Use: None Substance Use Type: None Smoking Status (MU): Light Every Day Tobacco Smoker Type: Cigarettes Amount Used/How Often: 3-4 CIGARETTES Have You Smoked in the Last Year: Yes When Did the Patient Quit Smoking/Using Tobacco: IN THE PROCESS OF QUITTING Household Exposure Type: Cigarettes - Immunization History Most Recent Tetanus Shot: Pt states up to date Review of Systems All Other Systems Reviewed And Are Negative: Yes Constitutional: Positive: Negative Skin: Positive: Negative Eyes: Positive: Negative ENT: Positive: Negative Respiratory: Positive: Cough Cardiovascular: Positive: Negative Gastrointestinal: Positive: Negative Neurovascular: Positive: Negative Neurological: Positive: Negative Psychological: Positive: Negative Physical Exam - Summary Physical Exam Summary: GENERAL: NAD. WDWN. No pain distress. SKIN: No rashes, sores, lesions, or open wounds. HEENT: Head: AT/NC Eyes: Conjunctiva clear without inflammation or discharge. Ears: Hearing grossly normal. TMs intact, no bulging, erythema, or edema. Nose: Nasal mucosa pink and moist. NTTP maxillary and frontal sinus. Throat: Posterior oropharynx without exudates, erythema, or tonsillar enlargement. Uvula midline. NECK: Supple. Nontender. No lymphadenopathy. CHEST: Mild wheezing throughout. No r/r. No accessory muscle use. Breathing comfortably and in no distress. CV: RRR. Without m/r/g. Pulses intact. Cap refill <2seconds NEURO: Alert. PSYCH: Age appropriate behavior. Triage Information Reviewed: Yes Vital Signs: Initial Vital Signs Temp 99.4 F 12/02/18 10:59 Pulse 83 12/02/18 10:59 Resp 16 12/02/18 10:59 BP 119/82 12/02/18 10:59 Pulse Ox 98 12/02/18 10:59 Vital Signs Reviewed: Yes Throat Pain/Nasal Course/Dx - Course Course Of Treatment: CXR: IMPRESSION: #. Elevated lung volumes suggest potential obstructive lung disease. #. No evidence for pneumonia or other acute cardiopulmonary process evident. Duoneb: Improvement of breathing. States easier to take a deep breath. Lung sounds improved with less wheezing. She is currently on Augmentin for an "internal infection", thus will hold on steroids at this time as I am unsure the source or nature of her infection and do not want to delay healing. Advised to continue using at home nebulizer, continue augmentin, and will rx for tessalon for her cough. F/u if symptoms worsen or do not improve. - Differential Dx/Diagnosis Provider Diagnosis: Bronchitis Discharge - Sign-Out/Discharge Documenting (check all that apply): Patient Departure All imaging exams completed and their final reports reviewed: Yes - Discharge Plan Condition: Stable Disposition: HOME Prescriptions: Benzonatate CAP* [Tessalon 100 MG CAP*] 100 mg PO TID PRN #21 cap PRN Reason: Cough Patient Education Materials: Acute Bronchitis (ED) Referrals: Kinjal Sharpe MD [Primary Care Provider] - Additional Instructions: If you develop a fever, shortness of breath, chest pain, new or worsening symptoms - please call your PCP or go to the ED. Please continue taking your antibiotic and using your at home nebulizer to help with your bronchitis - Billing Disposition and Condition Condition: STABLE Disposition: Home - Attestation Statements Provider Attestation: Per institutional requirements, I have reviewed the chart, however, I was not consulted specifically or made aware of this patient by the midlevel provider. I did not personally evaluate, interact with , or disposition this patient.
[2018-12-02] MEDS ORDERED: Albuterol/Ipratropium NEB.SOL* Albuterol 2.5 MG/Ipratropium 0.5 MG 3 ML INH ONE (11:36)
== END 2018-12-02 12:30 | disposition home or self-care (01) ==
LOC: UCEAST 10:13
DX: J40 Bronchitis, not specified as acute or chronic (principal); F31.9 Bipolar disorder, unspecified; F17.210 Nicotine dependence, cigarettes, uncomplicated
CPT/HCPCS: 71046; 99212; A9270-GY; G0463

== ENCOUNTER 2019-03-17 10:15 | Emergency (ER) | payer OTHER ==
[2019-03-17 10:40] VITALS: BP 105/57
--- NOTE | 2019-03-17 11:39 | ED ---
Lower Extremity - HPI Summary HPI Summary: 34 yr old female with the complaint of right ankle pain. yesterday. She fell going up stairs, and inverted her ankle. The pain is moderate. Worse with bearing weight. She has had prior ankle fracture and sprains. - History of Current Complaint Chief Complaint: UCLowerExtremity Stated Complaint: RT ANKLE INJURY Time Seen by Provider: 03/17/19 10:54 Hx Last Menstrual Period: tubal Pain Intensity: 8 - Allergies/Home Medications Allergies/Adverse Reactions: Allergies Allergy/AdvReac Type Severity Reaction Status Date / Time No Known Allergies Allergy Verified 03/17/19 10:40 PMH/Surg Hx/FS Hx/Imm Hx Endocrine/Hematology History: Denies: Hx Anticoagulant Therapy, Hx Diabetes, Hx Thyroid Disease Cardiovascular History: Denies: Hx Hypertension, Hx Pacemaker/ICD Respiratory History: Reports: Hx Asthma - PRN NEBULIZER Denies: Hx Chronic Obstructive Pulmonary Disease (COPD) GI History: Denies: Hx Ulcer History: Denies: Hx Renal Disease Musculoskeletal History: Denies: Hx Osteoporosis Sensory History: Reports: Hx Contacts or Glasses - GLASSES Denies: Hx Hearing Aid Opthamlomology History: Reports: Hx Contacts or Glasses - GLASSES Neurological History: Reports: Hx Seizures - LAST 3 MONTHS AGO-GR[facility] MAL-DR. PLASENCIA FOLLOWS Denies: Other Neuro Impairments/Disorders Psychiatric History: Denies: Hx Eating Disorder, Hx Panic Disorder, Hx of Violent Episodes Against Others - Cancer History Cancer Type, Location and Year: cervical cancer 12/24 - Surgical History Surgery Procedure, Year, and Place: ear tubes as a child,. HYSTEROSCOPY. LAPAROSCOPY. D&C. TONSILS AND ADENOIDS REMOVED;. LIPOMA REMOVED FROM RIGHT ARM -07/29/19 Hx Anesthesia Reactions: No Infectious Disease History: No Infectious Disease History: Denies: Hx Clostridium Difficile, Hx Hepatitis, Hx Human Immunodeficiency Virus (HIV), Hx of Known/Suspected MRSA, History Other Infectious Disease, Traveled Outside the [place] in Last 30 Days - Family History Known Family History: Positive: Cardiac Disease - Social History Alcohol Use: None Hx Substance Use: No Substance Use Type: Reports: None Smoking Status (MU): Light Every Day Tobacco Smoker Type: Cigarettes Amount Used/How Often: 3-4 CIGARETTES Have You Smoked in the Last Year: Yes Review of Systems Constitutional: Negative Positive: Other - ankle pain All Other Systems Reviewed And Are Negative: Yes Physical Exam Triage Information Reviewed: Yes Vital Signs On Initial Exam: Initial Vitals Temp Pulse Resp BP Pulse Ox 98 F 73 16 105/57 100 03/17/19 10:37 03/17/19 10:37 03/17/19 10:37 03/17/19 10:37 03/17/19 10:37 Vital Signs Reviewed: Yes Appearance: Positive: Well-Appearing, No Pain Distress Skin: Positive: Warm, Skin Color Reflects Adequate Perfusion Head/Face: Positive: Normal Head/Face Inspection Eyes: Positive: EOMI ENT: Positive: Normal ENT inspection Neck: Positive: Nontender Respiratory/Lung Sounds: Positive: Clear to Auscultation, Breath Sounds Present Cardiovascular: Negative: Pulses are Symmetrical in both Upper and Lower Extremities Abdomen Description: Negative: Distended Musculoskeletal: Positive: Other - right ankle with some tenderness over lateral malleolus. No abscess. Neurological: Positive: Sensory/Motor Intact, Alert, Oriented to Person Place, Time, CN Intact II-III Psychiatric: Positive: Normal Diagnostics - Vital Signs Vital Signs Temp Pulse Resp BP Pulse Ox 03/17/19 10:37 98 F 73 16 105/57 100 - Laboratory Lab Statement: Any lab studies that have been ordered have been reviewed, and results considered in the medical decision making process. - Radiology right, ankle, tib fib foot Radiology Interpretation Completed By: Radiologist - WILLIAM Lower Extremity Course/Dx - Course Course Of Treatment: RIght ankle sprain, to ortho for follow up. - Diagnoses Provider Diagnoses: Right ankle sprain Discharge - Sign-Out/Discharge Documenting (check all that apply): Patient Departure All imaging exams completed and their final reports reviewed: Yes - Discharge Plan Condition: Good Disposition: HOME Patient Education Materials: Ankle Sprain (ED) Referrals: Kinjal Sharpe MD [Primary Care Provider] - Nicola Marmolejo MD [Medical Doctor] - 2 Days - Billing Disposition and Condition Condition: GOOD Disposition: Home
== END 2019-03-17 12:21 | disposition home or self-care (01) ==
LOC: UCEAST 10:15
DX: S93.401A Sprain of unspecified ligament of right ankle, initial encounter (principal); W10.9XXA Fall (on) (from) unspecified stairs and steps, initial encounter; Y92.9 Unspecified place or not applicable; F17.210 Nicotine dependence, cigarettes, uncomplicated
CPT/HCPCS: 99213; G0463

== ENCOUNTER 2019-10-23 09:34 | Emergency (ER) | payer OTHER ==
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
--- OUTSIDE RECORDS SUMMARY | 2019-10-23 09:43 | XMS REPORT | Continuity of Care Document ---
:1985 External Reference #:[id number] Author Name Bobbi Dominguez PA-C Address [address] [place] [address] Care Team Providers Name Role Phone Dulce Voss MD Care Team Information Executive Vice President And Chief Financial Officer [phone] Problems Active Problems Provider Date Irritable bowel syndrome characterized Bobbi Dominguze PA-C Onset: 01/2019 by alternating bowel habit Generalized abdominal pain Bobbi Dominguez PA-C Onset: 08/18/2019 Constipation Bobbi Dominguez PA-C Onset: 08/18/2019 Diarrhea Bobbi Dominguez PA-C Onset: 08/18/2019 Asthma without status asthmaticus Bobbi Dominguez PA-C Onset: 2018 Social History Type Date Description Comments Sex Unknown Tobacco Use Start: Unknown Light tobacco smoker (10 or fewer cigarettes/day) Smoking Status Reviewed: 09/17/19 Light tobacco smoker (10 or fewer cigarettes/day) Allergies, Adverse Reactions, Alerts Description No Known Drug Allergies Medications Active Medications SIG Qnty Indications Ordering Date Provider Citrucel 2 tablets daily by 60tabs K58.2 Patria 09/17/2019 500mg mouth with 8oz of MD Ray Tablets fluid; may increase to up to 6/day Hyoscyamine Sulfate 1 tabs by mouth 120tabs Dulce Voss M 07/28/2019 every 4 hours as D 0.125mg Tablets needed Montelukast Sodium oral; take 1 90tabs Dulce Voss M 07/10/2019 tablet by D 10mg Tablets mouthdaily Lexapro take 1/2 tablet by 30tabs Dulce Voss M 07/10/2019 20mg mouth fr 1 week, D Tablets then take 1 by mouth every day Alprazolam 1 tab by mouth 60tabs Dulce Voss M 07/10/2019 1mg every 6 hours as D Tablets needed Ativan 1 tab by mouth 60tabs Dulce Voss M 07/10/2019 1mg Tablets twice a day as D needed Ventolin HFA Please specify 1units Dulce Voss M 06/30/2019 directions, D 108(90Base) mcg/Act refills and Aerosol quantity Symbicort 2 puffs twice 360units Unknown 05/26/2019 daily Inhalation 160-4.5mcg/Act Aerosol Lamotrigine 1 as needed Oral Unknown 02/18/2019 100mg Tablets Tegretol-XR 2 twice daily Unknown 02/18/2019 400mg Oral Tablets ER 12HR Immunizations Description No Information Available Vital Signs Date Vital Result Comment 09/17/2019 10:18am Height 61 inches 5'1" Weight 150.00 lb BMI (Body Mass Index) 28.3 kg/m2 08/18/2019 9:42am Height 61 inches 5'1" Weight 154.00 lb BP Systolic 108 mmHg BP Diastolic 73 mmHg Heart Rate 88 /min BMI (Body Mass Index) 29.1 kg/m2 Results Test Acquired Date Facility Test Result H/L Range Note Laboratory test 08/18/2019 [facility] Erythrocyte Sed 9 mm/Hr Normal 0-19 1 finding Rate C Reactive Protein 7.83 mg/L Normal <8.01 2 Celiac 2! 08/18/2019 [facility] Immunoglobulin A (Iga) 195 mg/dL 61 - 356 3 Tissue Transglutamianse Iga AB <1.2 U/mL 4 CMP(!) 08/07/2019 [facility] Sodium(!) <pending> Potassium(!) <pending> Chloride Serum/Plasma(!) <pending> Carbon Dioxide Ser/Plasm(!) <pending> BUN - Urea Nitrogen(!) <pending> Calcium Ser/Plasma Mass/Vol(!) <pending> Creatinine Serum Mass/Vol(!) <pending> Glucose Serum(!) <pending> BUN/Creatinine Ratio(!) <pending> Albumin Serum/Plasma(!) <pending> Alkaline Phosphatase(!) <pending> Bilirubin Total Mass/Vol(!) <pending> Ast - Sgot <pending> Alt - SGPT <pending> Protein Total <pending> CBC W/Auto 08/07/2019 [facility] White Blood <pending> Differential(!) Count Ser Auto CNT RBC Red Blood Count <pending> Hemoglobin Blood <pending> Hematocrit <pending> MCV (Corpuscular Volume) <pending> MCH (Corpuscular Hemoglobin) <pending> MCHC (Corpuscular Hemog Conc) <pending> RDW <pending> Platelet Count Blood Auto CNT <pending> MPV <pending> Lymph% <pending> Barnwell% <pending> Neutrophil % <pending> Absolute Lymphocytes <pending> Absolute Monocytes <pending> Absolute Neutrophils <pending> CBC Auto Diff 07/01/2019 N2N/CCD Import White Blood 14.8 10^3/uL High 3.5 -10.8 Count Red Blood Count 4.68 10^6/uL 3.70-4.87 Hemoglobin 15.1 g/dL 12.0-16.0 Hematocrit 45 % 35-47 Mean Corpuscular Volume 96 fL 80-97 Mean Corpuscular Hemoglobin 32 pg High 27-31 Mean Corpuscular HGB Conc 34 g/dL 31-36 Red Cell Distribution Width 14 % 10-15 Platelet Count 149 10^3/uL Low 150-450 Mean Platelet Volume 12.0 fL High 7.4-10.4 Abs Neutrophils 9.6 10^3/uL High 1.5-7.7 Abs Lymphocytes 4.0 10^3/uL 1.0-4.8 Abs Monocytes 0.9 10^3/uL High 0-0.8 Abs Eosinophils 0.2 10^3/uL 0-0.6 Abs Basophils 0.0 10^3/uL 0-0.2 Abs Nucleated RBC 0.0 10^3/uL Granulocyte % 65.4 % Lymphocyte % 27.2 % Monocyte % 5.9 % Eosinophil % 1.2 % Basophil % 0.3 % Nucleated Red Blood Cells % 0.1 1 Factor 8 Profile 07/01/2019 N2N/CCD Import Coagulation Factor VIII 103 % 55-200 5 Activi von Willebrand Factor Antigen 124 % 55-200 6 VonWillibrand Factor Activity 119 % 55-200 7 von Willebrand Panel Interp See Comment 8 1 [id number] 2 [id number] 3 Test Performed by: [facility] [employer] [place] [address] Concrete Truck Driver: Krish Garcia M.D. Ph.D.; CLIA# [id number] 4 REFERENCE VALUE <4.0 (Negative) Test Performed by: [facility] [employer] [place] [address] Concrete Truck Driver: Krish Garcia M.D. Ph.D.; CLIA# [id number] 5 ADDITIONAL INFORMATION This test has been modified from the glass blowing lathe operator's instructions. Its performance characteristics were determined by [facility] in a manner consistent with CLIA requirements. This test has not been cleared or approved by the U.S. Food and Drug Administration. 6 ADDITIONAL INFORMATION This test has been modified from the glass blowing lathe operator's instructions. Its performance characteristics were determined by [facility] in a manner consistent with CLIA requirements. This test has not been cleared or approved by the U.S. Food and Drug Administration. 7 ADDITIONAL INFORMATION This test has been modified from the glass blowing lathe operator's instructions. Its performance characteristics were determined by [facility] in a manner consistent with CLIA requirements. This test has not been cleared or approved by the U.S. Food and Drug Administration. 8 No laboratory evidence of von Willebrand's disease [...] not reviewed by physician. Test Performed by: [place] [address] Concrete Truck Driver: Krish Garcia M.D. Ph.D.; CLIA# [id number] Procedures Description No Information Available Medical Devices Description No Information Available Encounters Type Date Location Provider Dx Diagnosis Office Visit 08/18/2019 [facility] Bobbi Reyes R19.4 Change in bowel 9:[facility]a [facility] PA-C habit R19.7 Diarrhea, unspecified K59.00 Constipation, unspecified R10.84 Generalized abdominal pain Assessments Date Code Description Provider 09/17/2019 K58.2 Mixed irritable bowel syndrome Bobbi Dominguez PA-C 08/18/2019 R19.4 Change in bowel habit Bobbi Dominguez PA-C 08/18/2019 R19.7 Diarrhea, unspecified Bobbi Dominguez PA-C 08/18/2019 K59.00 Constipation, unspecified Bobbi Dominguez PA-C 08/18/2019 R10.84 Generalized abdominal pain Bobbi Dominguez PA-C Plan of Treatment 09/17/2019 - MILA Cloud58.2 Mixed irritable bowel syndromeNew Medication:Citrucel 500 mg - 2 tablets daily by mouth with 8oz of fluid; may increase to up to 6/day Functional Status Description No Information Available Mental Status Description No Information Available Referrals Description No Information Available
--- OUTSIDE RECORDS SUMMARY | 2019-10-23 09:43 | XMS REPORT | Continuity of Care Document ---
:1985 External Reference #:[id number] Author Name Bobbi Dominguez PA-C Address [address] [place] [address] Care Team Providers Name Role Phone Dulce Voss MD Care Team Information Assembly Department Supervisor [phone] Problems Active Problems Provider Date Generalized abdominal pain Bobbi Dominguez PA-C Onset: 08/18/2019 Constipation Bobbi Dominguez PA-C Onset: 08/18/2019 Diarrhea Bobbi Dominguez PA-C Onset: 08/18/2019 Asthma without status asthmaticus Bobbi Dominguez PA-C Onset: 2018 Social History Type Date Description Comments Sex Unknown Tobacco Use Start: Unknown Light tobacco smoker (10 or fewer cigarettes/day) Smoking Status Reviewed: 08/18/19 Light tobacco smoker (10 or fewer cigarettes/day) Allergies, Adverse Reactions, Alerts Description No Known Drug Allergies Medications Active Medications SIG Qnty Indications Ordering Date Provider Hyoscyamine Sulfate 1 tabs by mouth 120tabs Dulce Voss 07/28/2019 every 4 hours as D 0.125mg Tablets needed Montelukast Sodium oral; take 1 90tabs Dulce Voss M 07/10/2019 tablet by D 10mg Tablets mouthdaily Lexapro take 1/2 tablet by 30tabs Dulce Voss 07/10/2019 20mg mouth fr 1 week, D Tablets then take 1 by mouth every day Alprazolam 1 tab by mouth 60tabs Dulce Voss, 07/10/2019 1mg every 6 hours as D Tablets needed Ativan 1 tab by mouth 60tabs Dulce Voss 07/10/2019 1mg Tablets twice a day as [...] Available Vital Signs Date Vital Result Comment 08/18/2019 9:42am Height 61 inches 5'1" Weight [...] Auto CNT <pending> MPV <pending> Lymph% <pending> Stewart% <pending> Neutrophil % <pending> Absolute Lymphocytes <pending> [...] Willebrand Panel Interp See Comment 8 1 [id number] 2 [id number] 3 Test Performed by: [address] [address] Gun Tester: Krish Garcia M.D. Ph.D.; CLIA# [id number] 4 REFERENCE VALUE <4.0 (Negative) Test Performed by: [address], [place] [address] Gun Tester: Krish Garcia M.D. Ph.D.; CLIA# [id number] 5 ADDITIONAL INFORMATION This test has been modified from the international bank manager's instructions. Its performance characteristics were determined by [facility] in a manner consistent with CLIA requirements. This test has not been cleared or approved by the U.S. Food and Drug Administration. 6 ADDITIONAL INFORMATION This test has been modified from the international bank manager's instructions. Its performance characteristics were determined by [facility] in a manner consistent with CLIA requirements. This test has not been cleared or approved by the U.S. Food and Drug Administration. 7 ADDITIONAL INFORMATION This test has been modified from the international bank manager's instructions. Its performance characteristics were determined by [facility] in a manner consistent with CLIA [...] not reviewed by physician. Test Performed by: [facility] - [address] [address] Gun Tester: Krish Garcia M.D. Ph.D.; CLIA# [id number] Procedures Description No Information Available Medical Devices Description No Information Available Encounters Description No Information Available Assessments Date Code Description Provider 08/18/2019 R19.7 Diarrhea, unspecified Bobbi Dominguez PA-C 08/18/2019 K59.00 Constipation, unspecified Bobbi Dominguez PA-C 08/18/2019 R10.84 Generalized abdominal pain Bobbi Dominguez PA-C Plan of Treatment Future Appointment(s):09/17/2019 10:00 am - Bob[facility]-C [facility]08/18/2019 - ABISAI Cloud CR19.7 Diarrhea, unspecifiedNew Labs:Stool Culture, Ordered: 08/18/19C Difficile PCR, Ordered: 08/18/19O&P Ova & Parasites Screen, Ordered: 01/31Stool Occult Blood Diag, Ordered: 08/18/19Fecal Lactoferrin (Stool WBC), Ordered: 08/18/19K59.00 Constipation, unspecifiedNew Labs:Stool Culture, Ordered : 08/18/19C Difficile PCR, Ordered: 08/18/19O&P Ova & Parasites Screen, Ordered: 08/18/19Stool Occult Blood Diag, Ordered: 08/18/19Fecal Lactoferrin ( Stool WBC), Ordered: 08/18/19R10.84 Generalized abdominal painNew Labs:Stool Culture, Ordered: 08/18/19C Difficile PCR, Ordered: 08/18/19O&P Ova & Parasites Screen, Ordered: 08/18/19Stool Occult Blood Diag, Ordered: Fecal Lactoferrin (Stool WBC), Ordered: 08/18/19 Functional Status Description No Information Available Mental Status Description No Information Available Referrals Description No Information Available
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
--- OUTSIDE RECORDS SUMMARY | 2019-10-23 09:43 | XMS REPORT | Continuity of Care Document ---
:1985 External Reference #:[id number] Author Name Dulce Voss MD Address [address] [place] [address] Problems Active Problems Provider Date Epilepsy Onset: [...] Medications SIG Qnty Indications Ordering Date Provider Carpal Tunnel Wrist Please use one 2units Dulce Voss, 08/14/2019 Stabilizer/Small/Me device on each MD dium wrist at night for Misc carpal tunnel syndrome. Dispense one for each wrist. icd 10: g56.03 Hyoscyamine Sulfate 1 tabs by mouth 120tabs Dulce Aguillonholamaris, 07/28/2019 every 4 hours as MD 0.125mg Tablets needed Montelukast Sodium oral; take 1 90tabs Dulce Wineholt, 07/10/2019 tablet by MD 10mg Tablets mouthdaily Lexapro take 1/2 tablet by 30tabs Dulce Aguillonholt, 07/10/2019 20mg mouth fr 1 week, MD Tablets then take 1 by mouth every day Alprazolam 1 tab by mouth 60tabs Dulce Voss, 07/10/2019 1mg every 6 hours as MD Tablets needed Ativan 1 tab by mouth 60tabs Dulce Voss, 07/10/2019 1mg Tablets twice a day as MD needed Ventolin HFA Please specify 1Inhaler Dulce Shanika, 06/30/2019 directions, 108(90Base) mcg/Act refills and Aerosol quantity Symbicort 2 puffs twice 360units Unknown 05/26/2019 daily Inhalation 160-4.5mcg/Act Aerosol Lamotrigine 1 as needed Oral Unknown 02/18/2019 100mg Tablets Tegretol-XR 2 twice daily Unknown 02/18/2019 400mg Oral Tablets ER 12HR History Medications Alprazolam 1 tab by mouth as 60tabs [...] Tablets todal daily dose of 75mg Immunizations Description No Information Available Vital Signs Date Vital Result Comment 09/01/2019 [...] Result H/L Range Note CBC Auto 08/07/2019 [facility] White Blood 12.4 10^3/uL High 3.5-10.[address] [place] [address] [phone] Red Blood Count 4.45 10^6/uL Normal 3.70-4.87 [...] Blood Cells % 0.0 Comp Metabolic 08/07/2019 [facility] Sodium 139 mmol/L Normal 135-[address] [place] [address] [phone] Potassium 4.0 mmol/L Normal 3.5-5.0 Chloride 105 [...] >60 Egfr 107.5 >60 1 Laboratory 08/07/2019 [facility] Carbamazepine 10.1 Normal 4.0 -12.0 test finding [address] g/[place] [address] [phone] Lamotrigine (Lamictal) 1.2 g/mL Abnormal 2.5 - 15.0 2 CBC Auto 07/01/2019 [facility] White Blood 14.8 10^3/uL High 3.5-10.[address] [place] [address] [phone] Red Blood Count 4.68 10^6/uL Normal 3.70-4.87 [...] Blood Cells % 0.1 Factor 8 07/01/2019 [facility] Coagulation Factor 103 % 55 - [address] [place] [address] [phone] von Willebrand Factor Antigen 124 % 55 [...] developed and its performance characteristics determined by [facility] in a manner consistent with CLIA requirements. This test has not been cleared or approved by the U.S. Food and Drug Administration. Test Performed by: [facility] [address] [place] [address] Sales Assistant Displays: Krish Garcia M.D. Ph.D.; CLIA# [id number] 3 ADDITIONAL INFORMATION This test has been modified from the cutting machine operator's instructions. Its performance characteristics were determined by [facility] in a manner consistent with CLIA requirements. This test has not been cleared or approved by the U.S. Food and Drug Administration. 4 ADDITIONAL INFORMATION This test has been modified from the cutting machine operator's instructions. Its performance characteristics were determined by [facility] in a manner consistent with CLIA requirements. This test has not been cleared or approved by the U.S. Food and Drug Administration. 5 ADDITIONAL INFORMATION This test has been modified from the cutting machine operator's instructions. Its performance characteristics were determined by [facility] in a manner consistent with CLIA requirements. [...] not reviewed by physician. Test Performed by: [facility] - [address] [address] Sales Assistant Displays: Krish Garcia M.D. Ph.D.; CLIA# [id number] Procedures Date Code Description Status 08/14/2019 06078 Brief Emotional/Behav Assessment W/ Scoring Doc Per Completed Standard Inst 05/28/2019 42539 Brief Emotional/Behav Assessment W/ Scoring Doc Per Completed Standard Inst 04/30/2019 57771 Brief Emotional/Behav Assessment W/ Scoring Doc Per Completed Standard Inst 04/16/2019 47585 Brief Emotional/Behav Assessment W/ Scoring Doc Per Completed Standard Inst 04/03/2019 56489 Brief Emotional/Behav Assessment W/ Scoring Doc Per Completed Standard Inst 03/20/2019 29101 Brief Emotional/Behav Assessment W/ Scoring Doc Per Completed Standard Inst Medical Devices Description No Information Available Encounters Type Date Location Provider Dx Diagnosis Office Visit 08/14/2019 CFVirgie Voss MD G56.03 Carpal tunnel 8:15a syndrome, bilateral upper limbs S99.922A Unspecified injury [...] 8:45 am - Dulce Voss MD at [facility] Main2018 - Dulce Voss, MDR42 Dizziness and giddinessReferral:Shonda Luna, R29.6 Repeated nlwchI56.015 Hordeolum externum left lower eyelid Functional Status Description No Information Available Mental Status Description No Information Available Referrals Refer to Reason for Referral Status Appt Date Shonda Luna Patient with recurrent falls and frequent Created lightheadedness. She does not report losing conciousness with the falls, but does note racing heart when she finds herself on the floor. She has an extensive past medical history including seizures for which she sees a neurologist and has discussed the falls as well. [address] [place] [address] [phone] [facility], PLyubovC. 3 weeks of watery diarrhea with Sent decreased tolerance to foods [address] [place] [address] [phone]
--- OUTSIDE RECORDS SUMMARY | 2019-10-23 09:43 | XMS REPORT | Continuity of Care Document ---
:1985 External Reference #:[id number] Author Name Walter Paulson M.D. (transmitted by agent of provider Brandy Batista ) Address [address] [facility] [address] [place] [address] Care Team Providers Name Role Phone Dulce Voss M.D. - Family Care Team Information Owner Oral Surgeon [phone] Medicine Problems Active Problems Provider Date Epilepsy Raoul Teran M.D. Onset: 06/06/2017 Sprain of ankle Nicola Mamrolejo MD Onset: 05/31/2017 Social History Type Date Description Comments Sex Unknown ETOH Use Denies alcohol use Tobacco Use Start: Unknown Patient is a current smoker, 3 per day smokes every day Recreational Drug Use Denies Drug Use Smoking Status Reviewed: 09/22/19 Patient is a current smoker, 3 per day smokes every day Exercise Type/Frequency Exercises regularly Allergies, Adverse Reactions, Alerts Description No Known Drug Allergies Medications Active Medications SIG Qnty Indications Ordering Date Provider Montelukast Sodium 1 by mouth every Unknown 09/21/2019 10mg day Tablets Lorazepam Take 1 tab by Unknown 09/21/2019 1mg Tablets mouth twice a day as needed. MDD 2 tablets Escitalopram Oxalate 1 by mouth every Unknown 09/21/2019 day 20mg Tablets Lamotrigine ER 1 by mouth every Unknown 09/21/2019 100mg day Tablets ER 24HR [facility] Soluble Fiber Take 2 tablets Unknown 09/21/2019 Therapy by mouth daily 500mg Tablets with 8oz fluid, may increase to up to 6 tablets a day Symbicort 1 puff twice a Unknown 09/21/2019 day 160-4.5mcg/Act Aerosol Albuterol Sulfate HFA 2 puffs as Unknown 09/21/2019 needed 108(90Base) mcg/Act Aerosol Vitamin C Adult 2 by mouth daily Unknown 09/21/2019 Gummies 125mg Chewtabs Carbamazepine Take 2 Tablets 360Tablet Rigoberto Neri, GUCCI 04/28/2019 200mg By Mouth Twice A Tablets Day History Medications Lamotrigine ER 1 by mouth every 90tabs Raoul Teran, 08/07/2019 - 200mg day M.D. 09/22/2019 Tablets ER 24HR Lamotrigine ER take 1 tablet by 30tabs Raoul Teran, 07/15/2019 - 100mg mouth every day M.D. 08/07/2019 Tablets ER 24HR Lamotrigine ER Take 1 Tablet By 90Tablet Rigoberto Neri, GUCCI 07/14/2019 - 100mg Mouth Every Day 07/14/2019 Tablets ER 24HR Immunizations Description No Information Available Vital Signs Date Vital Result Comment 09/22/2019 9:12am Height 61 inches 5'1" Weight 149.00 lb with boots Heart Rate 88 /min ule reg cuff BP Systolic Sitting 100 mmHg BP Diastolic Sitting 76 mmHg BP Systolic Standing 94 mmHg BP Diastolic Standing 74 mmHg BP Systolic Lying Down 98 mmHg la repeat BP Diastolic Lying Down 64 mmHg la repeat BMI (Body Mass Index) 28.2 kg/m2 08/07/2019 9:47am Height 61 inches 5'1" Weight 155.00 lb Heart Rate 76 /min BP Systolic Sitting 110 mmHg BP Diastolic Sitting 80 mmHg Respiratory Rate 16 /min BMI (Body Mass Index) 29.3 kg/m2 Results Test Acquired Date Facility Test Result H/L Range Note Laboratory test 08/07/2019 [facility] Carbamazepine 10.1 Normal 4.0-12.[address] g/[place] [address] [phone] Lamotrigine 1.2 g/mL Abnormal 2.5 - 15.0 1 CBC Auto 08/07/2019 [facility] White Blood 12.4 10^3/uL High 3.5-10.[address] [place] [address] [phone] Red Blood Count 4.45 10^6/uL Normal 3.70-4.87 [...] Blood Cells % 0.0 Comp Metabolic 08/07/2019 [facility] Sodium 139 mmol/L Normal 135-145 Panel [address] [place] [address] [phone] Potassium 4.0 mmol/L Normal 3.5-5.0 Chloride 105 [...] Egfr Non- 88.8 >60 Egfr 107.5 >60 2 1 ADDITIONAL INFORMATION This test was developed and its performance characteristics determined by [facility] in a manner consistent with CLIA requirements. This test has not been cleared or approved by the U.S. Food and Drug Administration. Test Performed by: [facility] [address] [place] [address] Furnace Combination Analyst: Krish Garcia M.D. Ph.D.; CLIA# [id number] 2 Because ethnic data is not always readily [...] 15-29 5 Kidney failure <15 (or dialysis) Procedures Date Code Description Status 09/22/2019 90454 EKG Tracing & Interpretation Completed 06/13/2017 225482192 Bone Mineral Density Test Completed Medical Devices Description No Information Available Encounters Type Date Location Provider Dx Diagnosis Office Visit 08/07/2019 [facility] Raoul Coronado G40.909 Epilepsy, unsp, 9:45a [facility] Torin Teran not intractable, without status epilepticus Z79.899 Other chcf (current) drug therapy R94.01 Abnormal electroencephalogram [EEG] Assessments Date Code Description Provider 09/22/2019 G40.909 Epilepsy, unspecified, not intractable, Walter Paulson M.D. without status epile 09/22/2019 Z79.899 Other termite exterminator helper (current) drug therapy Walter Paulson M.D. 09/22/2019 R55 Syncope Walter Paulson M.D. 09/22/2019 R00.2 Palpitations Walter Paulson M.D. 09/22/2019 R06.00 Dyspnea Walter Paulson M.D. 08/07/2019 G40.909 Epilepsy, unspecified, not intractable, Raoul Teran M.D. without status epile 08/07/2019 Z79.899 Other termite exterminator helper (current) drug therapy Raoul Teran M.D. 08/07/2019 R94.01 Abnormal electroencephalogram [EEG] Raoul Teran M.D. Plan of Treatment Future Appointment(s):10/30/2019 9:30 am - Maria Elena Husain N.[facility]yubov at [facility]10/27/2019 10:00 am - [place] [facility] Schedule at [facility]2019 10:00 am - [place] [facility] Schedule at [facility]12/03/2019 10:30 am - Walter Paulson M.D. at [facility]02/06/2020 9:45 am - [facility] - Walter Paulson M.D.G40.909 Epilepsy, unspecified, not intractable, without status jldgjA59.899 Other termite exterminator helper (current) drug [id number] SyncopeNew Orders:Echocardiogram, Scheduled: 10/27/19Follow up:ov Maria Elena 1 m sary GARZON 6 mRecommendations:increase hydration. increase salt yoevqfW92.2 PalpitationsNew Orders:[facility], Ordered: 09/22/19R06.00 DyspneaNew Orders:Stress Test, Exercise Echocardiogram, Scheduled: 12/03/19 Functional Status Description No Information Available Mental Status Description No Information Available Referrals Description No Information Available
[2019-10-23] MEDS ORDERED: Ibuprofen TAB* 600 MG PO ONE (09:45)
[2019-10-23 09:48] VITALS: BP 96/55
--- NOTE | 2019-10-23 09:48 | UC ---
Hand/Wrist HPI - HPI Summary HPI Summary: 34-year-old woman comes in with chief complaint of right wrist pain. Last evening she reports she fell out of bed and hyperflexed her right wrist. Pain with any Range of motion or palpation. Did put a wrist splint on that she had at home which does help some with the pain. No complaint of any numbness or weakness. No complaint of any other injury. - History Of Current Complaint Chief Complaint: UCUpperExtremity Stated Complaint: ARM/HAND INJURY Time Seen by Provider: 10/23/19 09:44 Hx Last Menstrual Period: tubal - Allergies/Home Medications Allergies/Adverse Reactions: Allergies Allergy/AdvReac Type Severity Reaction Status Date / Time No Known Allergies Allergy Verified 10/23/19 09:48 Home Medications: Home Medications lamoTRIgine TAB(*) [LaMICtal TAB(*)] 200 mg PO DAILY 10/23/19 [History Confirmed 10/23/19] PMH/Surg Hx/FS Hx/Imm Hx Previously Healthy: Yes Other History Of: Negative For: Anticoagulant Therapy - Surgical History Surgical History: Yes Surgery Procedure, Year, and Place: ear tubes as a child,. HYSTEROSCOPY. LAPAROSCOPY. D&C. TONSILS AND ADENOIDS REMOVED;. LIPOMA REMOVED FROM RIGHT ARM -07/29/19 - Family History Known Family History: Positive: Cardiac Disease - Social History Alcohol Use: None Substance Use Type: None Smoking Status (MU): Light Every Day Tobacco Smoker Type: Cigarettes Amount Used/How Often: 3-4 CIGARETTES Have You Smoked in the Last Year: Yes When Did the Patient Quit Smoking/Using Tobacco: IN THE PROCESS OF QUITTING Household Exposure Type: Cigarettes - Immunization History Most Recent Tetanus Shot: Pt states up to date Review of Systems All Other Systems Reviewed And Are Negative: Yes Constitutional: Positive: Negative Skin: Positive: Negative Eyes: Positive: Negative ENT: Positive: Negative Respiratory: Positive: Negative Cardiovascular: Positive: Negative Gastrointestinal: Positive: Negative Motor: Positive: Negative Neurovascular: Positive: Negative Musculoskeletal: Positive: Other: - see hpi Neurological: Positive: Negative Psychological: Positive: Negative Is Patient Immunocompromised?: No Physical Exam Triage Information Reviewed: Yes Appearance: Well-Appearing, Well-Nourished, Pain Distress - MILD WITH ROM AND EXAM OF RT WRIST Vital Signs Reviewed: Yes Eye Exam: Normal Eyes: Positive: Conjunctiva Clear Neck: Positive: Supple Respiratory: Positive: No respiratory distress Musculoskeletal: Positive: Other: - Right wrist is diffusely tender to palpation. Patient is able to move her fingers and elbow full range of motion and full strength. Movement of the fingers does increase the pain in the wrist. Normal capillary refill normal sensation normal radial pulse. Neurological: Positive: Alert Psychological: Positive: Age Appropriate Behavior Skin Exam: Normal Hand/Wrist Course/Dx - Course Course Of Treatment: Front Attendant: Freida Fernandes S, ([id number]) Farm Operator: WARREN (WARREN) Report Date: 10/23/2019 10:16:00 Report Status: Final Start of Report Content Patient Name: FER LOO Medical Record#: [id number] Ordering Physician: Krish Posada MD Acct.#: [id number] : 1985 Age : 34 Sex: F Location: [facility] Exam Date: 10/23/19943 ADM Status: REG ER Order Information: WRIST RIGHT 3+ VWS Accession Number: [id number] CPT: 85765 Indication: Right wrist pain 3 views of the wrist demonstrates no fracture. No other bone or joint abnormality is identified. IMPRESSION: NO FRACTURE OF THE WRIST IS NOTED. <Electronically signed by Freida Fernandes MD in OV> 07/04 1012 Dictated By: Freida Fernandes MD Dictated Date/Time: 10/23/19 1012 Transcribed Date/Time: 10/23/19 1012 Copy to: CC:Dulce Voss MD; Krish Posada MD Imaging - [facility] [address] [place] [address] [place] [address] [place] [address] ph [phone]) ph [phone]) ph ([phone]) End of Report Content I discussed the x-rays with the patient. No fracture seen. Patient is diffusely tender about the wrist including the snuffbox therefore patient placed and a thumb spica splint by nursing patient neurovascular back after placement of thumb spica splint. Plan is ice anti-inflammatories thumb spica splint and get reevaluated by orthopedics if not completely improved. I did discuss the risk of navicular bone injury and the need for reevaluation if not completely improved. - Differential Dx/Diagnosis Provider Diagnosis: Right wrist sprain Discharge ED - Sign-Out/Discharge Documenting (check all that apply): Patient Departure All imaging exams completed and their final reports reviewed: Yes - Discharge Plan Condition: Stable Disposition: HOME Patient Education Materials: Wrist Sprain (ED) Referrals: Dulce Voss MD [Primary Care Provider] - [facility] [Provider Group] Alycia Samson MD [Medical Doctor] - Additional Instructions: FOLLOW UP WITH ORTHOPEDICS IF NOT COMPLETELY IMPROVED TO INCLUDE PAIN IN THE SNUFF BOW AREA OF YOUR WRIST. GET REEVALUATED SOONER IF NOT IMPROVED OR WORSE OR ANY QUESTIONS OR CONCERNS. - Billing Disposition and Condition Condition: STABLE Disposition: Home
== END 2019-10-23 10:46 | disposition home or self-care (01) ==
LOC: UCEAST 09:34
DX: S63.501A Unspecified sprain of right wrist, initial encounter (principal); W06.XXXA Fall from bed, initial encounter; Y92.003 Bedroom of unspecified non-institutional (private) residence as the place of occurrence of the external cause; F17.210 Nicotine dependence, cigarettes, uncomplicated
CPT/HCPCS: 99212; A9270-GY; G0463